=== PATIENT | female | born 1985 | race Two or more races ===

== ENCOUNTER 2021-03-25 14:58 | Emergency (ER) | payer MEDICAID, SELFPAY ==
--- NOTE | ~2021-03-25 | XR_ITS ---
EXAMINATION: XR CHEST CLINICAL INFORMATION: Chest tightness COMPARISON: None TECHNIQUE: 2 views of the chest were obtained. FINDINGS: No significant abnormality is noted involving the heart, lungs, mediastinum, bony thorax or soft tissues. XR/XR chest 2V IMPRESSION: Unremarkable examination.
[2021-03-25 15:12] VITALS: BP 126/75; PULSE 92; RESP 18; TEMP 36.7; O2SAT 98; BMI 41.5
--- NOTE | 2021-03-25 16:16 | ED_ITS ---
HPI - URI/Sore Throat General Chief Complaint: Upper Respiratory Symptoms Stated Complaint: headache,cough,sinus infection Time Seen by Provider: 03/25/21 15:48 Source: patient Mode of arrival: ambulatory Limitations: no limitations History of Present Illness HPI Narrative: 35-year-old female here with complaints of headache, dry cough, nasal congestion and chest tightness for 3 days. Ran out of her home albuterol. No shortness of breath, leg swelling, vomiting, diarrhea or abdominal pain. No fevers or chills. Received her COVID vaccine in December Related Data Previous Rx's Medication Instructions Recorded albuterol sulfate 2 inh INHALATION Q4H PRN #1 ea 03/25/21 benzonatate [Tessalon Perles] 100 mg PO TID PRN #10 cap 03/25/21 Allergies Allergy/AdvReac Type Severity Reaction Status Date / Time No Known Allergies Allergy Unknown UNKNOWN Unverified 05/17/20 15:51 Review of Systems Review of Systems: Yes all other systems are reviewed and are negative Constitutional: Constitutional: Reports no additional constitutional complaints, Denies body ache(s), Denies chills, Denies fever(s), Reports headache(s) and Denies weakness Eyes: Eyes: Reports no additional eye complaints and Denies change in vision ENT: Reports system reviewed and no additional complaints, except as documented, Denies dizziness, Reports headache(s), Reports nasal congestion, Denies nasal discharge and Denies neck pain Cardiovascular: Cardiovascular: Reports no additional cardiovascular complaints, Reports chest pain (Tightness), Denies leg edema and Denies dyspnea Respiratory: Respiratory: Reports no additional respiratory complaints, Reports cough and Denies dyspnea Gastrointestinal: Gastrointestinal: Reports no additional gastrointestinal complaints, Denies abdominal pain, Denies diarrhea, Denies nausea and Denies vomiting Genitourinary: Genitourinary: Reports no additional female genitourinary complaints and Denies urinary incontinence Musculoskeletal: Musculoskeletal: Reports no additional musculoskeletal complaints, Denies back pain, Denies arthralgias, Denies joint swelling, Denies neck pain, Denies numbness and Denies tingling Integumentary/Breasts: Skin/Breast: Reports system reviewed and no additional complaints, except as docu and Denies rash Neurologic: Denies Abnormal speech present, Denies dizziness, Reports headache(s), Denies numbness, Denies tingling and Denies weakness [facility] Past Medical History Attestation statement: The following information was validated with the patient. Source: old records reviewed and nursing notes reviewed Medical History Asthma delivery delivered Surgical History History of appendectomy Social History Social History Advance Directives: No Advance Directives Information Provided: Yes Patient : No Physical Exam Vital Signs: Vital Signs: Last Vital Signs Temp 98.0 F 03/25/21 15:12 Pulse 92 03/25/21 15:12 Resp 18 03/25/21 15:12 BP 126/75 03/25/21 15:12 Pulse Ox 98 03/25/21 15:12 Body Mass Index 41.5 Const: General: cooperative, healthy appearing, comfortable and no acute distress Orientation/consciousness: patient oriented x3 Limitations: no limitations HENMT: Head: Yes normal to inspection Ears: hearing grossly normal bilaterally General nose exam: Normal external nose present Face and sinus: Yes normal facial exam Mouth: Normal oral and palatal mucosa present Throat: Yes posterior oropharynx normal Eyes: General: appearance normal, both eyes and all related structures Pupils: Equal, round and reactive pupils present Neck: Neck: Yes normal visual inspection Chest: Chest palpation & inspection: normal inspection of the chest Resp: Effort & Inspection: normal respiratory effort Auscultation: clear to auscultation bilaterally Cardio: Rate: regular rate Rhythm: regular rhythm Peripheral pulses: Peripheral pulses 2+ throughout GI: Inspection: Yes normal to inspection Palpation (GI): Soft to palpation and nontender Auscultation: normal bowel sounds Back/Spine/Pelvis: Thoracic/Lumbar Spine: thoracic and lumbar spine normal to inspection Skin: General skin exam: no rashes or lesions noted Neuro: General: patient oriented x3, no focal motor deficits and normal sensation to monofilament Cranial nerves: Yes Equal, round and reactive pupils present Cognition (Neuro): normal cognition Speech: No Abnormal speech present Gait exam (Neuro): Normal gait present Motor exam (neuro): 5/5 motor strength present throughout Extrem: General: Yes normal to inspection Course Course Course Narrative: 35-year-old female here with upper respiratory symptoms for several days. Ran out of home albuterol. Exam is benign. Vitals are stable. Will check COVID test and chest x-ray 1650-chest x-ray shows no acute finding. COVID screen negative. Likely viral. Reviewed worrisome signs symptoms of when to return to the emergency department. Comfortable discharge home. MDM - URI/Sore Throat Medical Records Attestation: I reviewed the patient's medical records. Lab Data Attestation: I reviewed the patient's lab results. Labs: Lab Results 03/25/21 Range/Units 16:17 COVID-19 (YANIV) Negative (Negative) COVID-19 Clin Com See Note Imaging Data Chest x-ray: Attestation: I personally reviewed and interpreted this imaging study as follows: Radiologist's impression: [address] [id number] ReportSigned Patient: Sukhjinder Sharma#: [id number]: 1985Acct:[id number]/Sex: 35 / FADM Date: 03/25/21Loc: HO.EDAttending Dr: Ordering Physician: JB WHITLEY NP Date of Service: 03/25/21 Procedure(s): XR chest 2V Accession Number(s): [id number] cc: JB WHITLEY NP~ EXAMINATION: XR CHEST CLINICAL INFORMATION: Chest tightness COMPARISON: None TECHNIQUE: 2 views of the chest were obtained. FINDINGS: No significant abnormality is noted involving the heart, lungs, mediastinum, bony thorax or soft tissues. XR/XR chest 2V IMPRESSION: Unremarkable examination. Discharge Plan Discharge Clinical Impression: Upper respiratory infection Patient Disposition: Home, Self-Care Instructions: Viral Syndrome (ED) Additional Instructions: Your COVID test is negative Your x-ray shows no acute finding Increase fluids, rest Take Motrin/Tylenol as needed for pain or fever Prescriptions: New albuterol sulfate 90 mcg/actuation aerosol powdr breath activated 2 inh inhalation Q4H PRN (Reason: shortness of breath or wheezing) Qty: 1 RF: 0 benzonatate [Tessalon Perles] 100 mg capsule 100 mg PO TID PRN (Reason: cough) Qty: 10 RF: 0 Referrals: [facility] [Primary Care Provider] - 2 days Stand Alone Forms: Work/School Release
[2021-03-25 16:44] LABS: COVID-19 Test Negative (Negative)
== END 2021-03-25 16:59 | disposition home or self-care (01) ==
PROVIDERS: Nurse Practitioner Family; Emergency Provider Emergency Medicine
DX: J06.9 Acute upper respiratory infection, unspecified (principal); Z20.822 Contact with and (suspected) exposure to COVID-19; R51.9 Headache, unspecified
CPT/HCPCS: 36415; 71046; 87635; 99283

== ENCOUNTER 2021-08-09 16:00 | Emergency (ER) | payer MEDICAID, SELFPAY ==
--- NOTE | ~2021-08-09 | XR_ITS ---
EXAMINATION: XR HAND, RIGHT CLINICAL INFORMATION: Injury to the thumb COMPARISON: None TECHNIQUE: PA, lateral, and oblique views of the right hand. FINDINGS: The bones and soft tissues are normal. No fracture. Alignment is anatomic. Joint spaces are maintained. No erosions or soft tissue calcifications. XR/XR hand RT min 3V IMPRESSION: Normal right hand.
[2021-08-09 17:26] VITALS: RESP 18; TEMP 36.7; O2SAT 100; BMI 37.8
[2021-08-09 17:29] VITALS: BP 150/83; PULSE 62; RESP 16
--- NOTE | 2021-08-09 19:15 | ED.EXTPRO ---
HPI - Extremity Problem General Chief complaint: Extremity Injury, Upper Stated complaint: Thumb injury Time Seen by Provider: 08/09/21 19:15 Source: patient Mode of arrival: ambulatory Limitations: no limitations History of Present Illness HPI Narrative: 36-year-old female no known medical history presents to the emergency department with pain to her right thumb. Patient tells me that earlier this morning she was closing a car door and she jammed her right thumb into the car door. She tells me she immediately started experiencing 10/10 pain at the site. She notices bruising underneath her fingernail. She tells me she is able to move her finger however it causes her extreme pain. Patient tells me she took Motrin prior to arrival and has been feeling better. She has no other complaints at this time. Denies chest pain, fevers chills, shortness of breath, nausea, vomiting, abdominal pain, headache, vision changes. MD Complaint: extremity pain Onset (ago): hour(s) (8) Pain Consistency: constant Location: right Severity scale (1-10): 10 Quality: constant Radiation: none Relieving factors: immobilization Exacerbating factors: range of motion Associated symptoms: denies other symptoms Related Data Previous Rx's Medication Instructions Recorded albuterol sulfate 90 mcg/actuation 2 inh INHALATION Q4H PRN #1 ea 03/25/21 breath activated powder inhaler benzonatate 100 mg capsule 100 mg PO TID PRN #10 cap 03/25/21 (Mary Ortiz) Allergies Allergy/AdvReac Type Severity Reaction Status Date / Time No Known Allergies Allergy Unknown UNKNOWN Unverified 05/17/20 15:51 Review of Systems Review of Systems: Constitutional : No Fever, No Chills, Cardiovascular : No Chest Pain, No SOB Respiratory : No Dyspnea Gastrointestinal : No abdominal pain Musculoskeletal : + Joint Swelling, + Joint pain Skin : No rash, No skin laceration, + bruising Neuro : No Weakness, No Numbness Psych : No SI/HI Yes all other systems are reviewed and are negative PMFSH Past Medical History Attestation statement: The following information was validated with the patient. Source: old records reviewed and nursing notes reviewed Medical History Asthma delivery delivered Surgical History History of appendectomy Social History Social History Advance Directives: No Advance Directives Information Provided: Yes Patient : No Physical Exam Vital Signs: Vital Signs: Last Vital Signs Temp 98.1 F 08/09/21 17:26 Pulse 62 08/09/21 17:29 Resp 16 08/09/21 17:29 BP 150/83 H 08/09/21 17:29 Pulse Ox 100 08/09/21 17:26 BMI result Body Mass Index 37.8 Vital signs stable, patient noted to be slightly hypertensive. Blood pressure likely elevated secondary to pain. Appearance: Alert.? Oriented X3.? No acute distress.? Head: Normocephalic, atraumatic, no step-offs or deformities Eyes: Pupils equal, round and reactive to light.? ENT: Pharynx normal.? Neck: Normal inspection.? Neck supple.? CVS: Normal heart rate and rhythm.? Pulses normal.? Respiratory: No respiratory distress.? Breath sounds normal.? Abdomen: Soft and nontender.? Skin: Skin warm and dry.? Normal skin color.? Normal skin turgor.? Extremities: No lower extremity edema. 5/5 strength to bilateral upper and lower extremities + pain with flexion and extension of right 1st digit, sub fungal hematoma noted. No swelling or ecchymosis. Finger has full range of motion, good distal pulses. No evident ligament or tendon involvement. Back: No midline tenderness, no C-spine tenderness, full range of motion, no CVA tenderness bilaterally Neuro: Oriented X 3.? No motor deficit.? No sensory deficit. Course Reevaluation(s) Reevaluation #1: X-ray is negative for fractures. Patient will be placed in a finger splint, and will be given Tylenol for pain. Patient has been advised to return to the emergency department with new or worsening symptoms. She should follow-up with her PCP, and Ortho if her finger does not improve in 1-2 weeks. Patient is safe for discharge home. Time: 19:23 MDM - Extremity (Nontraumatic) MDM Narrative Medical decision making narrative: 1923 36-year-old female known medical history presents to the emergency department with complaints of right 1st digit pain status post jamming it into a door earlier this morning. Patient reports being able to move the finger however it causes her pain. She also noted bruising underneath the fingernail. Sensory and motor intact. Patient offers no other complaints at this time. On physical examination patient is noted to have pain with flexion and extension of the right 1st digit. There is ecchymosis noted underneath the fingernail. Patient has full range of motion to the digit however painful. No evident ligament tendon involvement. Good distal pulses bilaterally. Plan at this time is to obtain an x-ray. Medical Records Attestation: I reviewed the patient's medical records. Lab Data Attestation: I reviewed the patient's lab results. Imaging Data Right hand x-ray: Attestation: I personally reviewed and interpreted this imaging study as follows: Radiologist's impression: FINDINGS: The bones and soft tissues are normal. No fracture. Alignment is anatomic. Joint spaces are maintained. No erosions or soft tissue calcifications.? XR/XR hand RT min 3V IMPRESSION: Normal right hand. Critical Care Time Critical Care Time Critical Care Time: No Discharge Plan Discharge Clinical Impression: Jammed finger (interphalangeal joint), Finger pain, Finger sprain Patient Disposition: Home, Self-Care Instructions: Finger Sprain (ED) Additional Instructions: Take your medications as prescribed. Take ibuprofen every 6 hours, and Tylenol every 4 hours as needed for pain. Follow-up with Orthopedics of you do not feel better in a week or 2. Your x-ray did not show any fractures. Follow-up with your primary care provider this week. Return to the emergency department with new or worsening symptoms. In case of emergency call 911 Prescriptions: No Action albuterol sulfate 90 mcg/actuation aerosol powdr breath activated 2 inh inhalation Q4H PRN (Reason: shortness of breath or wheezing) Qty: 1 RF: 0 benzonatate [Tessalon Perles] 100 mg capsule 100 mg PO TID PRN (Reason: cough) Qty: 10 RF: 0 Referrals: Physician,Unknown J [Primary Care Provider] - 2 days Rosio Dong MD [Physician] - 1 week
[2021-08-09] MEDS: Acetaminophen 325 MG TABLET 650 MG PO (19:46)
== END 2021-08-09 20:08 | disposition home or self-care (01) ==
PROVIDERS: Emergency Provider Internal Medicine
DX: S63.601A Unspecified sprain of right thumb, initial encounter (principal); M79.644 Pain in right finger(s); Y29.XXXA Contact with blunt object, undetermined intent, initial encounter; Y93.9 Activity, unspecified; Y92.9 Unspecified place or not applicable; Y99.9 Unspecified external cause status; Z79.899 Other long term (current) drug therapy
CPT/HCPCS: 29130; 73130; 99283; 99284

== ENCOUNTER 2022-02-09 21:22 | Emergency (ER) | payer MEDICAID, SELFPAY ==
--- NOTE | 2022-02-09 | ECG_ITS ---
Test Reason : DIZZINESS Blood Pressure : / mmHG Vent. Rate : 069 BPM Atrial Rate : 069 BPM P-R Int : 146 ms QRS Dur : 082 ms QT Int : 398 ms P-R-T Axes : 014 050 043 degrees QTc Int : 426 ms Normal sinus rhythm Normal ECG No previous ECGs available Referred By: Generic ED Physician Electronically Signed By:Yair Mendoza
[2022-02-09 21:30] VITALS: BP 125/76; PULSE 79; RESP 20; TEMP 36.4; O2SAT 97; BMI 31.1
[2022-02-09 21:50] LABS: MANUAL DIFF FLAG NO
[2022-02-09 21:51] LABS: Basophils Absolute Auto 0.1 X10*3/uL (0.0-0.2); Basophils Percent Auto 0.7 % (0-2); Eosinophils Absolute Auto 0.6 X10*3/uL (0.0-0.4); Eosinophils Percent Auto 4.7 % (0-4); Hematocrit 35.9 % (37.0-47.0); Hemoglobin 11.7 g/dl (12.0-16.0); Imm Gran Abs Auto 0.04 X10*3/uL (0.00-0.03); Imm Gran Pct Auto 0.3 % (0.0-0.4); Lymphocytes Absolute Auto 3.1 X10*3/uL (1.2-4.9); Lymphocytes Percent Auto 26.1 % (20-40); Mean Corpuscular HGB Conc 32.6 g/dl (31.0-35.0); Mean Corpuscular Hemoglobin 23.4 pg (27.0-33.0); Mean Corpuscular Volume 71.8 fL (80.0-98.0); Mean Platelet Volume 10.4 fL (9.4-12.3); Monocytes Absolute Auto 0.6 X10*3/uL (0.1-1.2); Monocytes Percent Auto 5.3 % (2-11); Neutrophils Absolute Auto 7.6 x10*3/uL (2.0-8.3); Neutrophils Percent Auto 62.9 % (45-73); Platelet Count 325 X10*3/uL (160-400); Red Cell Distribution Width 14.7 % (11.0-16.0)
[2022-02-09 22:05] LABS: Anion Gap 12 (12-20); Blood Urea Nitrogen 10 mg/dL (9-16); Calcium 9.3 mg/dL (8.4-10.2); Carbon Dioxide 24 mmol/L (22-29); Chloride 106 mmol/L (96-108); Estimated Glomerular Filt Rate > 60; Glucose Random 101 mg/dL (60-115); Potassium 3.9 mmol/L (3.3-5.1); Sodium 138 mmol/L (135-145)
[2022-02-09 22:11] LABS: Troponin-I High Sensitivity < 3.5 ng/L (<3.5-17.0)
--- NOTE | 2022-02-09 22:36 | ED.GENADULT ---
HPI - General Adult General Chief complaint: Dizziness Stated complaint: episode of dizziness,sweating,nausea Time Seen by Provider: 02/09/22 22:36 Source: patient Limitations: no limitations History of Present Illness HPI narrative: This is a 28-year-old female who was at work today, when she had an episode where she felt momentarily dizzy. She did have associated nausea but no pain. She did feel sweaty. She was working in air conditioning. She denies any pain such as headache, chest pain, abdominal pain. She has not had any shortness of breath. She denies diarrhea. She does not believe she is , states her period is due about now. She denies any pain or swelling in her legs. She has a history of asthma and anemia. Related Data Previous Rx's Medication Instructions Recorded albuterol sulfate 90 mcg/actuation 2 inh inhalation Q4H PRN shortness 03/25/21 breath activated powder inhaler of breath or wheezing #1 ea benzonatate 100 mg capsule 100 mg PO TID PRN cough #10 caps 03/25/21 (Mary Ortiz) Allergies Allergy/AdvReac Type Severity Reaction Status Date / Time No Known Allergies Allergy Unknown UNKNOWN Unverified 02/09/22 21:32 Review of Systems Review of Systems: Yes all other systems are reviewed and are negative Constitutional: Constitutional: Reports as per HPI and Denies fever(s) Comments: Sweats, transient Eyes: Eyes: Reports as per HPI and Reports no additional eye complaints ENT: Reports system reviewed and no additional complaints, except as documented, Reports as per HPI, Reports dizziness, Denies nasal congestion, Denies nasal discharge and Denies sore throat Cardiovascular: Cardiovascular: Reports as per HPI, Denies chest pain and Denies dyspnea Respiratory: Respiratory: Reports as per HPI, Denies cough and Denies dyspnea Gastrointestinal: Gastrointestinal: Reports as per HPI, Denies abdominal pain, Denies diarrhea, Reports nausea and Denies vomiting Genitourinary: Genitourinary: Reports as per HPI, Denies hematuria, Denies urinary frequency and Denies dysuria Musculoskeletal: Musculoskeletal: Reports no additional musculoskeletal complaints and Denies numbness Integumentary/Breasts: Skin/Breast: Reports as per HPI and Denies rash Neurologic: Reports as per HPI, Reports dizziness, Denies focal weakness and Denies numbness Psychiatric: Psychiatric: Reports no additional psychiatric complaints and Reports as per HPI Endocrine: Endocrine: Reports no additional endocrine complaints and Reports as per HPI Hematologic/Lymphatic: Hematologic/Lymphatic: Reports no additional hematologic/lymphatic complaints, Reports as per HPI and Reports other (No peripheral edema) [facility] Past Medical History Medical History Asthma delivery delivered Surgical History History of appendectomy Social History Social History Advance Directives: No Advance Directives Information Provided: No Physical Exam ED Vital Signs: Vital Signs - 24 hr 02/09/22 21:30 02/09/22 22:47 Temperature 97.6 F 97.9 F Pulse Rate 79 82 Respiratory Rate 20 18 Blood Pressure 125/76 121/69 Pulse Oximetry 97 100 Oxygen Delivery Method Room Air Room Air BMI result Body Mass Index 31.1 Medical Decision Making MDM Narrative Medical decision making narrative: Patient with a brief episode of dizziness, nausea, sweats today. No associated pain. No shortness of breath. EKG is normal. Labs show borderline anemia, patient has history of anemia. Patient is not . Patient likely had vasovagal near-syncope. No clinical suspicion for pulmonary embolism. Lab Data Lab results reviewed: Yes I reviewed the patient's lab results. Result diagrams: 02/09/22 21:39 02/09/22 21:39 Labs: Lab Results 02/09/22 02/09/22 02/09/22 Range/Units 21:39 21:39 21:39 WBC 12.0 H (4.8-10.8) X10*3/uL RBC 5.00 (4.20-5.50) X10*6/uL Hgb 11.7 L (12.0-16.0) g/dl Hct 35.9 L (37.0-47.0) % MCV 71.8 L (80.0-98.0) fL MCH 23.4 L (27.0-33.0) pg MCHC 32.6 (31.0-35.0) g/dl RDW 14.7 (11.0-16.0) % Plt Count 325 (160-400) X10*3/uL MPV 10.4 (9.4-12.3) fL Immature Gran % (Auto) 0.3 (0.0-0.4) % Neut % (Auto) 62.9 (45-73) % Lymph % (Auto) 26.1 (20-40) % [place] % (Auto) 5.3 (2-11) % Eos % (Auto) 4.7 H (0-4) % Baso % (Auto) 0.7 (0-2) % Lymph # (Auto) 3.1 (1.2-4.9) X10*3/uL [place] # (Auto) 0.6 (0.1-1.2) X10*3/uL Eos # (Auto) 0.6 H (0.0-0.4) X10*3/uL Baso # (Auto) 0.1 (0.0-0.2) X10*3/uL Abs Immat Gran (auto) 0.04 H (0.00-0.03) X10*3/uL Absolute Neuts (auto) 7.6 (2.0-8.3) x10*3/uL Absolute Nucleated RBC 0.000 (0.0-0.012) X10*3/uL Nucleated RBC % (auto) 0.0 (0.0-0.2) /100WBC Sodium 138 (135-145) mmol/L Potassium 3.9 (3.3-5.1) mmol/L Chloride 106 (96-108) mmol/L Carbon Dioxide 24 (22-29) mmol/L Anion Gap 12 (12-20) BUN 10 (9-16) mg/dL Creatinine 0.72 (0.5-1.4) mg/dL Estim Creat Clear Calc 98.0 Estimated GFR > 60 Random Glucose 101 (60-115) mg/dL Calcium 9.3 (8.4-10.2) mg/dL Troponin I High Sens < 3.5 (<3.5-17.0) ng/L Urine Test (NEGATIVE) 02/09/22 Range/Units 22:44 WBC (4.8-10.8) X10*3/uL RBC (4.20-5.50) X10*6/uL Hgb (12.0-16.0) g/dl Hct (37.0-47.0) % MCV (80.0-98.0) fL MCH (27.0-33.0) pg MCHC (31.0-35.0) g/dl RDW (11.0-16.0) % Plt Count (160-400) X10*3/uL MPV (9.4-12.3) fL Immature Gran % (Auto) (0.0-0.4) % Neut % (Auto) (45-73) % Lymph % (Auto) (20-40) % [place] % (Auto) (2-11) % Eos % (Auto) (0-4) % Baso % (Auto) (0-2) % Lymph # (Auto) (1.2-4.9) X10*3/uL [place] # (Auto) (0.1-1.2) X10*3/uL Eos # (Auto) (0.0-0.4) X10*3/uL Baso # (Auto) (0.0-0.2) X10*3/uL Abs Immat Gran (auto) (0.00-0.03) X10*3/uL Absolute Neuts (auto) (2.0-8.3) x10*3/uL Absolute Nucleated RBC (0.0-0.012) X10*3/uL Nucleated RBC % (auto) (0.0-0.2) /100WBC Sodium (135-145) mmol/L Potassium (3.3-5.1) mmol/L Chloride (96-108) mmol/L Carbon Dioxide (22-29) mmol/L Anion Gap (12-20) BUN (9-16) mg/dL Creatinine (0.5-1.4) mg/dL Estim Creat Clear Calc Estimated GFR Random Glucose (60-115) mg/dL Calcium (8.4-10.2) mg/dL Troponin I High Sens (<3.5-17.0) ng/L Urine Test NEGATIVE (NEGATIVE) ECG Data Attestation: I personally reviewed and interpreted this ECG as follows: Interpretation: Sinus rhythm with a rate of 69. No ST elevation depression. Normal QRS axis. No ectopy. Discharge Plan Discharge Clinical Impression: Vasovagal episode Patient Disposition: Home, Self-Care Instructions: Near Syncope (ED) Additional Instructions: Follow-up with primary care physician as needed. Plenty of fluids. Likely had an episode where your vagus nerve got over stimulated, causing dizziness and sweats and transient low blood pressure. Your labs and EKG infected she tested not show any concerning findings. Prescriptions: No Action albuterol sulfate 90 mcg/actuation aerosol powdr breath activated 2 inh inhalation Q4H PRN (Reason: shortness of breath or wheezing) Qty: 1 0RF benzonatate [Tessalon Perles] 100 mg capsule 100 mg PO TID PRN (Reason: cough) Qty: 10 0RF Interventions: ED Discharge Assessment Last Done: 02/09/22 23:22 Discharge Date/Time: 02/09/22 23:31
[2022-02-09 22:47] VITALS: BP 121/69; PULSE 82; RESP 18; TEMP 36.6; O2SAT 100
[2022-02-09 22:58] LABS: UPreg QC Valid YES; Urine Pregnancy NEGATIVE (NEGATIVE)
== END 2022-02-09 23:31 | disposition home or self-care (01) ==
PROVIDERS: Emergency Provider Emergency Medicine
DX: R55 Syncope and collapse (principal); D64.9 Anemia, unspecified; J45.909 Unspecified asthma, uncomplicated
CPT/HCPCS: 36415; 80048; 81025; 84484; 85025; 93005; 99283; 99284

== ENCOUNTER 2022-06-11 19:26 | Emergency (ER) | payer MEDICAID, SELFPAY ==
--- NOTE | 2022-06-11 | ECG_ITS ---
Test Reason : CHEST PAIN Blood Pressure : / mmHG Vent. Rate : 067 BPM Atrial Rate : 067 BPM P-R Int : 140 ms QRS Dur : 082 ms QT Int : 396 ms P-R-T Axes : 011 040 034 degrees QTc Int : 418 ms Normal sinus rhythm Normal ECG When compared with ECG of 09-FEB-2022 21:36, T wave amplitude has decreased in Anterior leads Referred By: Generic ED Physician Electronically Signed By:SALLIE HOUGH MD
--- NOTE | ~2022-06-11 | XR_ITS ---
EXAMINATION: XR CHEST CLINICAL INFORMATION: Chest pain COMPARISON: 03/25/2021 TECHNIQUE: Frontal view of the chest was obtained. FINDINGS: The lungs are clear with no focal consolidation. No evidence of pneumothorax, pulmonary edema, or pleural effusions. The cardiomediastinal silhouette is unremarkable. No acute osseous findings. XR/XR chest 1V IMPRESSION: No acute cardiopulmonary findings.
[2022-06-11 20:26] VITALS: BP 141/69; PULSE 75; RESP 16; TEMP 36.6; O2SAT 98; BMI 38.1
[2022-06-11 20:59] LABS: Hematocrit 39.2 % (37.0-47.0); Hemoglobin 12.5 g/dl (12.0-16.0); Mean Corpuscular HGB Conc 31.9 g/dl (31.0-35.0); Mean Corpuscular Hemoglobin 23.3 pg (27.0-33.0); Mean Corpuscular Volume 73.1 fL (80.0-98.0); Mean Platelet Volume 10.4 fL (9.4-12.3); Platelet Count 353 X10*3/uL (160-400); Red Blood Count 5.36 X10*6/uL (4.20-5.50); Red Cell Distribution Width 15.6 % (11.0-16.0); White Blood Count 10.8 X10*3/uL (4.8-10.8)
[2022-06-11 21:14] LABS: Alanine Aminotransferase 24 U/L (0-31); Albumin Level 4.4 g/dL (3.5-5.0); Alkaline Phosphatase 64 U/L (39-117); Anion Gap 16 (12-20); Aspartate Amino Transferase 24 U/L (5-31); Bilirubin Total 1.2 mg/dL (0.0-1.0); Blood Urea Nitrogen 8 mg/dL (9-16); Calcium 9.4 mg/dL (8.4-10.2); Carbon Dioxide 22 mmol/L (22-29); Chloride 105 mmol/L (96-108); Creatinine Clr Calc Pharmacy 99.5; Estimated Glomerular Filt Rate > 60; Glucose Random 88 mg/dL (60-115); Potassium 3.9 mmol/L (3.3-5.1); Sodium 139 mmol/L (135-145); Total Protein 7.3 g/dL (6.5-8.0)
[2022-06-11 21:20] LABS: Troponin-I High Sensitivity < 3.5 ng/L (<3.5-17.0)
--- NOTE | 2022-06-12 00:16 | ED_ITS ---
HPI - Chest Pain General Chief Complaint: Chest Pain Stated Complaint: chest pain 3x days Time Seen by Provider: 06/11/22 23:54 Source: patient Mode of arrival: ambulatory Limitations: no limitations History of Present Illness HPI narrative: Patient comes to the emergency room complaining of right-sided chest pain for 2 days. Patient denies any injuries. Patient states it is worse when she bends down or if she puts pressure over her right chest. Patient denies any URI or UTI symptoms, no fever chills, no shortness of , no radiation of the pain Related Data Previous Rx's Medication Instructions Recorded albuterol sulfate 90 mcg/actuation 2 inh inhalation Q4H PRN shortness 03/25/21 breath activated powder inhaler of breath or wheezing #1 ea benzonatate 100 mg capsule 100 mg PO TID PRN cough #10 caps 03/25/21 (Mary Ortiz) Allergies Allergy/AdvReac Type Severity Reaction Status Date / Time No Known Allergies Allergy Unknown UNKNOWN Unverified 02/09/22 21:32 Review of Systems Review of Systems: Constitutional : No Weight loss, No Fever, No Chills, No Night Sweats, No Fatigue, No Malaise ENT/Mouth : No Hearing loss, No Ear Pain, No Nasal Congestion, No Sinus Pain, No Hoarseness, No sore throat, No Rhinorrhea, No Swallowing Difficulty Eyes: No Eye Pain, No Swelling, No Redness, No Foreign Body, No Discharge, No Vision Changes Cardiovascular : Complaining of right-sided Chest Pain, No SOB, No Dyspnea on Exertion, No Orthopnea, No Edema, No Palpitations Respiratory : No Cough, No Sputum, No Wheezing, No Smoke Exposure, No Dyspnea Gastrointestinal : No Nausea, No Vomiting, No Diarrhea, No Constipation, No abdominal Pain, No Hematochezia, No Melena Genitourinary : no irregular bleeding, No Dysuria, No Urinary Frequency, No Hematuria, No Urinary Incontinence, No Urgency, No Flank Pain, No Urinary Flow Changes, No Hesitancy Musculoskeletal : No joint pain, No Myalgias, No Joint Swelling Skin : No Skin Lesions, No rash Neuro : No Weakness, No Numbness, No Paresthesias, No Loss of Consciousness, No Dizziness, No Headache Psych : No Anxiety/Panic, No Depression, No SI/HI/AH/VH, No Social Issues, Heme/Lymph: No Bruising, No Bleeding,No Lymphadenopathy Endocrine : No Polyuria, No Polydipsia, No Temperature Intolerance REPLACED BY [facility] Past Medical History Medical History Asthma delivery delivered Surgical History History of appendectomy Social History Social History Advance Directives: No Physical Exam Vital Signs: Vital Signs: Last Vital Signs Temp 98 F 06/11/22 20:26 Pulse 75 06/11/22 20:26 Resp 16 06/11/22 20:26 BP 141/69 H 06/11/22 20:26 Pulse Ox 98 06/11/22 20:26 O2 Del Method 06/11/22 20:26 BMI result Body Mass Index 38.1 Const: Other: Appearance: Alert. Oriented X3. No acute distress. Eyes: Pupils equal, round and reactive to light. ENT: Pharynx normal. Neck: Normal inspection. Neck supple. No lymph nodes noted. No crepitus CVS: Normal heart rate and rhythm. Pulses normal. Normal S1 and S2, repro ducible chest pain to palpation in the right side of the chest Respiratory: No respiratory distress. Breath sounds normal. No Wheezing. No rales Abdomen: Soft and nontender. No rigidity. No distention. Skin: Skin warm and dry. Normal skin color. Normal skin turgor. Extremities: No lower extremity edema. No Lacerations. No Rash Neuro: Oriented X 3. No motor deficit. No sensory deficit. Moving all extremities. No slurred speech. CN 2 through 12 grossly intact Psych: calm, cooperative, normal affect Course Course Course Narrative: I discussed the physical exam with the patient, pain is likely musculoskeletal. Troponin, EKG negative, chest x-ray negative, reviewed by me, radiology report pending. EKG: Normal sinus rhythm, heart rate 67, no ST segment depression or elevation, no T-wave inversion, QTC 418 Patient was offered a dose of IM Toradol. Patient states she does not have that much pain, would prefer p.o. medication. MDM - Chest Pain Lab Data Result diagrams: 06/11/22 20:51 06/11/22 20:51 Labs: Lab Results 06/11/22 06/11/22 06/11/22 Range/Units 20:51 20:51 20:51 WBC 10.8 (4.8-10.8) X10*3/uL RBC 5.36 (4.20-5.50) X10*6/uL Hgb 12.5 (12.0-16.0) g/dl Hct 39.2 (37.0-47.0) % MCV 73.1 L (80.0-98.0) fL MCH 23.3 L (27.0-33.0) pg MCHC 31.9 (31.0-35.0) g/dl RDW 15.6 (11.0-16.0) % Plt Count 353 (160-400) X10*3/uL MPV 10.4 (9.4-12.3) fL Absolute Nucleated RBC 0.000 (0.0-0.012) X10*3/uL Nucleated RBC % (auto) 0.0 (0.0-0.2) /100WBC Sodium 139 (135-145) mmol/L Potassium 3.9 (3.3-5.1) mmol/L Chloride 105 (96-108) mmol/L Carbon Dioxide 22 (22-29) mmol/L Anion Gap 16 (12-20) BUN 8 L (9-16) mg/dL Creatinine 0.79 (0.5-1.4) mg/dL Estim Creat Clear Calc 99.5 Estimated GFR > 60 Random Glucose 88 (60-115) mg/dL Calcium 9.4 (8.4-10.2) mg/dL Total Bilirubin 1.2 H (0.0-1.0) mg/dL AST 24 (5-31) U/L ALT 24 (0-31) U/L Alkaline Phosphatase 64 (39-117) U/L Troponin I High Sens < 3.5 (<3.5-17.0) ng/L Total Protein 7.3 (6.5-8.0) g/dL Albumin 4.4 (3.5-5.0) g/dL Imaging Data Chest x-ray: Radiologist's impression: FINDINGS: The lungs are clear with no focal consolidation. No evidence of pneumothorax, pulmonary edema, or pleural effusions. The cardiomediastinal silhouette is unremarkable. No acute osseous findings. XR/XR chest 1V IMPRESSION: No acute cardiopulmonary findings Discharge Plan Discharge Clinical Impression: Anterior chest wall pain Patient Disposition: Home, Self-Care Instructions: Chest Pain (ED), Chest Wall Pain (ED) Additional Instructions: Please follow-up with your primary care physician tomorrow. If you have any worsening or new symptoms, please return to the emergency room or call 911 Prescriptions: No Action albuterol sulfate 90 mcg/actuation aerosol powdr breath activated 2 inh inhalation Q4H PRN (Reason: shortness of breath or wheezing) Qty: 1 0RF benzonatate [Tessalon Perles] 100 mg capsule 100 mg PO TID PRN (Reason: cough) Qty: 10 0RF
== END 2022-06-12 01:56 | disposition home or self-care (01) ==
PROVIDERS: Emergency Provider Emergency Medicine
DX: R07.89 Other chest pain (principal); Z79.899 Other long term (current) drug therapy
CPT/HCPCS: 36415; 71045; 80053; 84484; 85027; 93005; 99283

== ENCOUNTER 2023-03-23 09:18 | Emergency (ER) | payer MEDICAID, SELFPAY ==
--- NOTE | ~2023-03-23 | CT_ITS ---
EXAMINATION: CT ABDOMEN AND PELVIS WITH CONTRAST CLINICAL INFORMATION: Left lower quadrant pain COMPARISON: None available. TECHNIQUE: Multidetector volumetric images were obtained from the superior aspect of the liver through the pubic symphysis following administration 85 mL of Omnipaque 350 intravenous contrast. Sagittal and coronal reformatted images were obtained on the technologist's workstation. Oral contrast: No This CT examination was performed using dose optimization techniques as appropriate, variously including the following: *Automated exposure control *Adjustment of mA and/or kV according to patient size (this includes techniques or standardized protocols for targeted exams where dose is matched to indication/reason for exam; i.e. extremities or head) *Use of iterative reconstruction technique DLP: 552 mGy-cm FINDINGS: LUNG BASES: The visualized lung bases are unremarkable. LIVER, GALLBLADDER, AND BILIARY TREE: The liver is normal in size, shape, and attenuation. No focal hepatic lesion or biliary ductal dilatation is present. The gallbladder is unremarkable with no evidence of radiopaque gallstones, gallbladder wall thickening, or obvious pericholecystic inflammatory changes. PANCREAS: Unremarkable. SPLEEN: Unremarkable. ADRENAL GLANDS: Unremarkable. KIDNEYS AND URETERS: The kidneys are normal in size, shape, and attenuation. No hydronephrosis, hydroureter, or calculi seen. No perinephric stranding. BLADDER: Unremarkable. GASTROINTESTINAL TRACT: The small and large bowel are unremarkable. The appendix is is not definitively visualized. No secondary signs of appendicitis. ABDOMINAL WALL: No significant hernia is appreciated. LYMPH NODES: Normal. VASCULAR: Unremarkable. PELVIC VISCERA: Anteverted uterus. Bilateral adnexal/ovarian hypodensities foci measuring up to 2.0 cm, better evaluated on contemporaneous pelvic ultrasound. OSSEOUS STRUCTURES: Unremarkable. CT/CT abdomen pelvis w IV con IMPRESSION: 1. No acute process of the abdomen or pelvis identified. 2. Bilateral adnexal/ovarian hypodensities foci measuring up to 2.0 cm, better evaluated on contemporaneous pelvic ultrasound.
--- NOTE | ~2023-03-23 | US_ITS ---
EXAMINATION: US PELVIS COMPLETE US PELVIS ENDOVAGINAL CLINICAL INFORMATION: Vaginal bleeding COMPARISON: None. TECHNIQUE: Transabdominal and transvaginal images of the pelvis were obtained. FINDINGS: UTERUS: Anteverted. Normal size and contour, measuring 8.7 x 4.7 x 6.6 cm (cervix to fundus x AP x transverse). Anterior myometrium demonstrates increased vascularity. Hyperechoic focus in the left uterine fundus measuring up to 5 mm, nonspecific. Endometrium measures 0.7 cm in width. Nabothian cysts are noted. RIGHT OVARY: Normal size and echogenicity measuring 3.9 x 2.2 x 1.6 cm, volume 7.2 mL. Vascular flow noted in the right ovary. Right paraovarian/exophytic cyst measuring 1.2 x 1.3 x 1.1 cm, simple appearing. LEFT OVARY: Normal size and echogenicity measuring 2.6 x 2.4 x 2.1 cm, volume 6.7 mL. Vascular flow noted in the left ovary. FREE FLUID: No pelvic free fluid. US/US pelvic and transvaginal IMPRESSION: 1. Bilateral ovarian vascular flow identified. 2. Anterior myometrium demonstrates increased vascularity. 3. Hyperechoic focus in the left uterine fundus measuring up to 5 mm, nonspecific. 4. Nabothian cysts are noted. 5. Right paraovarian/exophytic cyst measuring up to 1.3 cm, simple appearing.
--- NOTE | ~2023-03-23 | US_ITS ---
EXAMINATION: US PELVIS COMPLETE US PELVIS ENDOVAGINAL CLINICAL INFORMATION: Vaginal bleeding COMPARISON: None. TECHNIQUE: Transabdominal and transvaginal images of the pelvis were obtained. FINDINGS: UTERUS: Anteverted. Normal size and contour, measuring 8.7 x 4.7 x 6.6 cm (cervix to fundus x AP x transverse). Anterior myometrium demonstrates increased vascularity. Hyperechoic focus in the left uterine fundus measuring up to 5 mm, nonspecific. Endometrium measures 0.7 cm in width. Nabothian cysts are noted. RIGHT OVARY: Normal size and echogenicity measuring 3.9 x 2.2 x 1.6 cm, volume 7.2 mL. Vascular flow noted in the right ovary. Right paraovarian/exophytic cyst measuring 1.2 x 1.3 x 1.1 cm, simple appearing. LEFT OVARY: Normal size and echogenicity measuring 2.6 x 2.4 x 2.1 cm, volume 6.7 mL. Vascular flow noted in the left ovary. FREE FLUID: No pelvic free fluid. US/US pelvic ovarian doppler IMPRESSION: 1. Bilateral ovarian vascular flow identified. 2. Anterior myometrium demonstrates increased vascularity. 3. Hyperechoic focus in the left uterine fundus measuring up to 5 mm, nonspecific. 4. Nabothian cysts are noted. 5. Right paraovarian/exophytic cyst measuring up to 1.3 cm, simple appearing.
[2023-03-23 09:25] VITALS: BP 124/64; PULSE 75; RESP 12; TEMP 36.5; O2SAT 99; BMI 35.5
[2023-03-23 09:46] VITALS: BP 141/76; PULSE 85; RESP 16; TEMP 36.7; O2SAT 100
--- NOTE | 2023-03-23 09:52 | PC.NURSE ---
pt a&ox3, vss, pt coming in due to 8 left lower abdominal pain, denies pain radiating towards flank area or anywhere else, tenderness noted upon palpation pt states that pain started with onset of menses, pt states she has been expelling blood clots since thursday - pt has picture on phone, denies n/v/d or any other symptoms, bloody urine noted in urine sample.
--- NOTE | 2023-03-23 09:55 | PC.NURSE ---
tech sending urine sample to lab.
[2023-03-23 10:06] LABS: MANUAL DIFF FLAG NO
[2023-03-23 10:11] LABS: Appearance Urine Cloudy; Color Urine RED; Glucose Urine UA Negative (Negative); Nitrite Urine Negative (Negative); Specific Gravity - Urine 1.025 (1.005-1.025); UMIC TRIGGER UACC YES; Urine Blood Large (3+) (Negative); Urine Ketones Negative (Negative); Urine Protein 100 (2+) mg/dL (Neg-Trace)
[2023-03-23 10:12] LABS: Basophils Absolute Auto 0.1 X10*3/uL (0.0-0.2); Basophils Percent Auto 0.8 % (0-2); Eosinophils Absolute Auto 0.2 X10*3/uL (0.0-0.4); Eosinophils Percent Auto 2.8 % (0-4); Hematocrit 38.4 % (37.0-47.0); Hemoglobin 12.5 g/dl (12.0-16.0); Imm Gran Abs Auto 0.03 X10*3/uL (0.00-0.03); Imm Gran Pct Auto 0.4 % (0.0-0.4); Lymphocytes Absolute Auto 1.6 X10*3/uL (1.2-4.9); Lymphocytes Percent Auto 20.1 % (20-40); Mean Corpuscular HGB Conc 32.6 g/dl (31.0-35.0); Mean Corpuscular Hemoglobin 23.6 pg (27.0-33.0); Mean Corpuscular Volume 72.6 fL (80.0-98.0); Mean Platelet Volume 10.1 fL (9.4-12.3); Monocytes Absolute Auto 0.4 X10*3/uL (0.1-1.2); Monocytes Percent Auto 5.2 % (2-11); Neutrophils Absolute Auto 5.6 x10*3/uL (2.0-8.3); Neutrophils Percent Auto 70.7 % (45-73); Platelet Count 340 X10*3/uL (160-400); Red Blood Count 5.29 X10*6/uL (4.20-5.50); Red Cell Distribution Width 14.8 % (11.0-16.0); White Blood Count 7.9 X10*3/uL (4.8-10.8)
--- NOTE | 2023-03-23 10:12 | ED_ITS ---
HPI - General Adult General Chief complaint: Abdominal Pain Stated complaint: L side abd pain Time Seen by Provider: 03/23/23 09:39 Source: patient Mode of arrival: ambulatory Limitations: no limitations History of Present Illness HPI narrative: patient is a 37-year-old female with a past medical history of and appendectomy presenting to the emergency department with a complaint of left- sided abdominal pain X 3 days. Patient reports that she got her period on Thursday and since then she has been having a much heavier period than usual and much more pain than usual ( per patient going through about 1 tampon regular an hour). Patient reports that there are large dark red clots which are not nor mal for her typical period. Patient reports that the pain is a stabbing sensation all along the left side of her abdomen accompanied by intermittent cramping, pain has been gradually worsening. Patient reports her last period was normal. Patient denies using any forms of control and reports being sexually active with 1 male partner but does not believe she could be . Patient has 2 children and no history of miscarriage. Patient denies fever, chills, nausea, vomiting, constipation, diarrhea, chest pain, shortness of breath, numbness, tingling, headache, vision changes. Patient not on thinners. Hasnt been regularly followed by obgyn in over 3 years Related Data Previous Rx's Medication Instructions Recorded albuterol sulfate 90 mcg/actuation 2 inh inhalation Q4H PRN shortness 03/25/21 breath activated powder inhaler of breath or wheezing #1 ea benzonatate 100 mg capsule 100 mg PO TID PRN cough #10 caps 03/25/21 (Mary Ortiz) ketorolac 10 mg tablet 10 mg PO TID PRN pain 5 days #15 03/23/23 tabs nitrofurantoin 100 mg PO BID 5 days #10 caps 03/23/23 monohydrate/macrocrystals 100 mg capsule (Macrobid) Allergies Allergy/AdvReac Type Severity Reaction Status Date / Time No Known Allergies Allergy Unknown UNKNOWN Unverified 02/09/22 21:32 Review of Systems Review of Systems: Constitutional : No Weight loss, No Fever, No Chills, No Fatigue, No Malaise ENT/Mouth : No sore throat, No Rhinorrhea Eyes: No Eye Pain, No Swelling, No Redness Cardiovascular : No Chest Pain, No SOB, No Dyspnea on Exertion, No Orthopnea, No Edema, No Palpitations Respiratory : No Cough, No Sputum, No Wheezing Gastrointestinal : No Nausea, No Vomiting, No Diarrhea, No Constipation, + abdominal Pain, No Hematochezia, No Melena, + vaginal bleeding Genitourinary : No Dysuria, No Urinary Frequency, No Hematuria, Musculoskeletal : No joint pain, No Myalgias, No Joint Swelling Skin : No Skin Lesions, No rash Neuro : No Weakness, No Numbness, No Dizziness, No Headache Psych : No Anxiety/Panic, No Depression All other systems reviewed and are negative Yes all other systems are reviewed and are negative [facility] Past Medical History Attestation statement: The following information was validated with the patient. Source: old records reviewed and nursing notes reviewed Medical History Asthma delivery delivered Surgical History History of appendectomy Social History Social History Alcohol intake: current Alcohol intake frequency: holidays/special occasions only Smoked in Last 30 Days: No Use of substances other than those prescribed or required for medical reasons: No Advance Directives: No Advance Directives Information Provided: Yes Patient : No Physical Exam ED Vital Signs: Vital Signs - 24 hr 03/23/23 09:25 03/23/23 09:46 03/23/23 11:57 Temperature 97.7 F 98.0 F Pulse Rate 75 85 61 Respiratory Rate 12 16 18 Blood Pressure 124/64 141/76 H 114/69 Pulse Oximetry 99 100 99 Oxygen Delivery Method Room Air Room Air Room Air 03/23/23 13:03 Temperature 98.2 F Pulse Rate 68 Respiratory Rate 16 Blood Pressure 120/67 Pulse Oximetry 100 Oxygen Delivery Method Room Air BMI result Body Mass Index 35.5 vss Appearance: Alert.? Oriented X3.? No acute distress.? Head: Normocephalic, atraumatic, no step-offs or deformities Eyes: Pupils equal, round and reactive to light.? Neck: Normal inspection.? Neck supple.? CVS: Normal heart rate and rhythm.? Pulses normal.? Respiratory: No respiratory distress.? Breath sounds normal.? Abdomen: Soft. +tenderness to palpation on the left side, worse in the LLQ. Skin: Skin warm and dry.? Normal skin color.? Normal skin turgor.? Extremities: No lower extremity edema.? No calf ttp. 5/5 strength to bilateral upper and lower extremities Back: No midline tenderness, no C-spine tenderness, full range of motion, no CVA tenderness bilaterally Neuro: Oriented X 3.? No motor deficit.? No sensory deficit. CN 2-12 intact sensitive exam: accompanied by Blaire PRICE normal appearing external genitalia, normal vaginal canal, no lesions lumps, masses, lacerations or hematomas. Closed cervical os without discharge. There is a moderate amount of dark red blood with no clots. No pain with palpation bilaterally. No adnexal tenderness. No cervical motion tenderness. No palpable adenopathy Tolerated pelvic exam well. Course Reevaluation(s) Reevaluation #1: CBC appears to be around patient's baseline. chemistry unremarkable. Beta hCG negative unlikely ectopic or miscarriage. UA noted to have leukocyte esterases, blood likely secondary to menses and 1+ bacteria will treat for UTI due to patient's symptoms. Time: 10:59 Reevaluation #2: Repeat CBC with stable H& H. Patient feeling well after Toradol now only reporting minimal pain, tylenol ordered at this time. CT abd and pelvis w/ no acute process of the abd and pelvis. Bilateral adnexal/ ovarian hypodensitis foci measuring upto 2.0 cm US pending. Time: 14:14 Reevaluation #3: Patient's ultrasound of pelvic and transvaginal with bilateral very in vascular flow, no signs of torsion. Anterior myometrium demonstrating increased vascularity hypoechoic focus in the left uterine fundus measuring up to 5 mm nonspecific, nabothian cysts are noted, right periovarian/exophytic cyst measuring up to 1.3 cm in simple appearing. I do not suspect any of this is causing patient's pain. Likely menorrhagia with cramping from menses. Will have a follow-up with senior web engineer. Stable at time of discharge, vital signs stable, no tachycardia or hypotension. Patient will follow-up with OBGYN I did give her follow-up information. Patient is comfortable with being discharged home, I did educate her of bleeding increases or if she is bleeding through more than 2 pad per hour she should seek medical attention. Time: 14:28 Medications Administered Discontinued Medications Generic Name Dose Route Start Last Admin Trade Name Caesar PRN Reason Stop Dose Admin Iohexol 100 ml 03/23/23 12:37 03/23/23 12:38 Iohexol 350 Mg/Ml 100 Ml Infus..Btl IV 03/23/23 12:38 85 ml ONCE ONE Administration Ketorolac Tromethamine 30 mg 03/23/23 10:36 03/23/23 11:55 Ketorolac Tromethamine 30 Mg/Ml Vial IM 03/23/23 10:37 30 mg ONCE ONE Administration Medical Decision Making Medical Decision Making [facility] Narrative: 37-year-old female w/ presents with left-sided abdominal pain physical exam positive for left-sided tenderness to palpation with increased tenderness in the left lower quadrant. No CVA tenderness. Concerns for menorrhagia which is most likely versus ovarian cyst versus endometriosis. . Less likely miscarriage versus diverticulitis. Will rule out ovarian torsion, ectopic . Unlikely acute abdomen, renal stone, cholecystitis, appendicitis. Will rule out acute blood loss anemia and electrolyte abnormalities and UTI. Unlikely STDs or PID . Other differential malignancy. Plan: labs, urine, imaging Differential Diagnosis Differential Diagnoses: The differential diagnosis associated with the presentation includes Concerns for menorrhagia which is most likely versus ovarian cyst versus endometriosis. . Less likely miscarriage versus diverticulitis. Will rule out ovarian torsion, ectopic . Unlikely acute abdomen, renal stone, cholecystitis, appendicitis. Will rule out acute blood loss anemia and electrolyte abnormalities and UTI. Unlikely STDs or PID . Other differential malignancy. Admission/Observation Consideration of admission/observation: Escalation of care including admission/observation considered possible Lab Data [facility] Lab Attestation statement: I reviewed the patient's lab results. 03/23/23 10:02 03/23/23 10:02 Labs: Lab Results 03/23/23 03/23/23 03/23/23 Range/Units 09:56 09:56 09:59 WBC (4.8-10.8) X10*3/uL RBC (4.20-5.50) X10*6/uL Hgb (12.0-16.0) g/dl Hct (37.0-47.0) % MCV (80.0-98.0) fL MCH (27.0-33.0) pg MCHC (31.0-35.0) g/dl RDW (11.0-16.0) % Plt Count (160-400) X10*3/uL MPV (9.4-12.3) fL Immature Gran % (Auto) (0.0-0.4) % Neut % (Auto) (45-73) % Lymph % (Auto) (20-40) % [place] % (Auto) (2-11) % Eos % (Auto) (0-4) % Baso % (Auto) (0-2) % Lymph # (Auto) (1.2-4.9) X10*3/uL [place] # (Auto) (0.1-1.2) X10*3/uL Eos # (Auto) (0.0-0.4) X10*3/uL Baso # (Auto) (0.0-0.2) X10*3/uL Abs Immat Gran (auto) (0.00-0.03) X10*3/uL Absolute Neuts (auto) (2.0-8.3) x10*3/uL Absolute Nucleated RBC (0.0-0.012) X10*3/uL Nucleated RBC % (auto) (0.0-0.2) /100WBC Sodium (135-145) mmol/L Potassium (3.3-5.1) mmol/L Chloride (96-108) mmol/L Carbon Dioxide (22-29) mmol/L Anion Gap (12-20) BUN (9-16) mg/dL Creatinine (0.5-1.4) mg/dL Estim Creat Clear Calc Estimated GFR Random Glucose (60-115) mg/dL Calcium (8.4-10.2) mg/dL Magnesium (1.6-2.6) mg/dL Total Bilirubin (0.0-1.0) mg/dL AST (5-31) U/L ALT (0-31) U/L Alkaline Phosphatase (39-117) U/L Total Protein (6.5-8.0) g/dL Albumin (3.5-5.0) g/dL Lipase (8-78) U/L Beta HCG, Quant mIU/mL Urine Color RED Urine Appearance Cloudy Urine pH 6.0 (5.0-9.0) Ur Specific [place] 1.025 (1.005-1.025) Urine Protein 100 (2+) H (Neg-Trace) mg/dL Urine Glucose (UA) Negative (Negative) mg/dL Urine Ketones Negative (Negative) mg/dL Urine Blood Large (3+) H (Negative) Urine Nitrite Negative (Negative) Ur Leukocyte Esterase Negative (Negative) Urine RBC >20 H (0-2) /HPF Urine WBC >50 H (0-5) /HPF Ur Squamous Epith Cells 6-10 (0-2) /HPF Urine Bacteria 1+ (None Seen) Hyaline Casts 0-2 (0-2) /LPF Urine Opiates Screen Not Detected (Not Detect) Urine Fentanyl Screen Not Detected (Not Detect) Ur Barbiturates Screen Not Detected (Not Detect) Ur Phencyclidine Scrn Not Detected (Not Detect) Ur Amphetamines Screen Not Detected (Not Detect) U Benzodiazepines Scrn Not Detected (Not Detect) Urine Cocaine Screen Not Detected (Not Detect) U Marijuana (THC) Screen Not Detected (Not Detect) COVID-19 (YANIV) Negative (Negative) COVID-19 Clin Com See Note 03/23/23 03/23/23 03/23/23 Range/Units 10:02 10:02 10:02 WBC 7.9 (4.8-10.8) X10*3/uL RBC 5.29 (4.20-5.50) X10*6/uL Hgb 12.5 (12.0-16.0) g/dl Hct 38.4 (37.0-47.0) % MCV 72.6 L (80.0-98.0) fL MCH 23.6 L (27.0-33.0) pg MCHC 32.6 (31.0-35.0) g/dl RDW 14.8 (11.0-16.0) % Plt Count 340 (160-400) X10*3/uL MPV 10.1 (9.4-12.3) fL Immature Gran % (Auto) 0.4 (0.0-0.4) % Neut % (Auto) 70.7 (45-73) % Lymph % (Auto) 20.1 (20-40) % [place] % (Auto) 5.2 (2-11) % Eos % (Auto) 2.8 (0-4) % Baso % (Auto) 0.8 (0-2) % Lymph # (Auto) 1.6 (1.2-4.9) X10*3/uL [place] # (Auto) 0.4 (0.1-1.2) X10*3/uL Eos # (Auto) 0.2 (0.0-0.4) X10*3/uL Baso # (Auto) 0.1 (0.0-0.2) X10*3/uL Abs Immat Gran (auto) 0.03 (0.00-0.03) X10*3/uL Absolute Neuts (auto) 5.6 (2.0-8.3) x10*3/uL Absolute Nucleated RBC 0.000 (0.0-0.012) X10*3/uL Nucleated RBC % (auto) 0.0 (0.0-0.2) /100WBC Sodium 140 (135-145) mmol/L Potassium 4.1 (3.3-5.1) mmol/L Chloride 110 H (96-108) mmol/L Carbon Dioxide 23 (22-29) mmol/L Anion Gap 11 L (12-20) BUN 9 (9-16) mg/dL Creatinine 0.74 (0.5-1.4) mg/dL Estim Creat Clear Calc 101.2 Estimated GFR > 60 Random Glucose 89 (60-115) mg/dL Calcium 9.6 (8.4-10.2) mg/dL Magnesium 2.2 (1.6-2.6) mg/dL Total Bilirubin 0.8 (0.0-1.0) mg/dL AST 28 (5-31) U/L ALT 35 H (0-31) U/L Alkaline Phosphatase 73 (39-117) U/L Total Protein 7.2 (6.5-8.0) g/dL Albumin 4.1 (3.5-5.0) g/dL Lipase 19 (8-78) U/L Beta HCG, Quant < 2 mIU/mL Urine Color Urine Appearance Urine pH (5.0-9.0) Ur Specific [place] (1.005-1.025) Urine Protein (Neg-Trace) mg/dL Urine Glucose (UA) (Negative) mg/dL Urine Ketones (Negative) mg/dL Urine Blood (Negative) Urine Nitrite (Negative) Ur Leukocyte Esterase (Negative) Urine RBC (0-2) /HPF Urine WBC (0-5) /HPF Ur Squamous Epith Cells (0-2) /HPF Urine Bacteria (None Seen) Hyaline Casts (0-2) /LPF Urine Opiates Screen (Not Detect) Urine Fentanyl Screen (Not Detect) Ur Barbiturates Screen (Not Detect) Ur Phencyclidine Scrn (Not Detect) Ur Amphetamines Screen (Not Detect) U Benzodiazepines Scrn (Not Detect) Urine Cocaine Screen (Not Detect) U Marijuana (THC) Screen (Not Detect) COVID-19 (YANIV) (Negative) COVID-19 Clin Com 03/23/23 Range/Units 12:17 WBC 7.6 (4.8-10.8) X10*3/uL RBC 5.11 (4.20-5.50) X10*6/uL Hgb 12.1 (12.0-16.0) g/dl Hct 37.5 (37.0-47.0) % MCV 73.4 L (80.0-98.0) fL MCH 23.7 L (27.0-33.0) pg MCHC 32.3 (31.0-35.0) g/dl RDW 14.9 (11.0-16.0) % Plt Count 342 (160-400) X10*3/uL MPV 10.1 (9.4-12.3) fL Immature Gran % (Auto) 0.1 (0.0-0.4) % Neut % (Auto) 69.3 (45-73) % Lymph % (Auto) 22.4 (20-40) % [place] % (Auto) 4.1 (2-11) % Eos % (Auto) 3.3 (0-4) % Baso % (Auto) 0.8 (0-2) % Lymph # (Auto) 1.7 (1.2-4.9) X10*3/uL [place] # (Auto) 0.3 (0.1-1.2) X10*3/uL Eos # (Auto) 0.3 (0.0-0.4) X10*3/uL Baso # (Auto) 0.1 (0.0-0.2) X10*3/uL Abs Immat Gran (auto) 0.01 (0.00-0.03) X10*3/uL Absolute Neuts (auto) 5.2 (2.0-8.3) x10*3/uL Absolute Nucleated RBC 0.000 (0.0-0.012) X10*3/uL Nucleated RBC % (auto) 0.0 (0.0-0.2) /100WBC Sodium (135-145) mmol/L Potassium (3.3-5.1) mmol/L Chloride (96-108) mmol/L Carbon Dioxide (22-29) mmol/L Anion Gap (12-20) BUN (9-16) mg/dL Creatinine (0.5-1.4) mg/dL Estim Creat Clear Calc Estimated GFR Random Glucose (60-115) mg/dL Calcium (8.4-10.2) mg/dL Magnesium (1.6-2.6) mg/dL Total Bilirubin (0.0-1.0) mg/dL AST (5-31) U/L ALT (0-31) U/L Alkaline Phosphatase (39-117) U/L Total Protein (6.5-8.0) g/dL Albumin (3.5-5.0) g/dL Lipase (8-78) U/L Beta HCG, Quant mIU/mL Urine Color Urine Appearance Urine pH (5.0-9.0) Ur Specific [place] (1.005-1.025) Urine Protein (Neg-Trace) mg/dL Urine Glucose (UA) (Negative) mg/dL Urine Ketones (Negative) mg/dL Urine Blood (Negative) Urine Nitrite (Negative) Ur Leukocyte Esterase (Negative) Urine RBC (0-2) /HPF Urine WBC (0-5) /HPF Ur Squamous Epith Cells (0-2) /HPF Urine Bacteria (None Seen) Hyaline Casts (0-2) /LPF Urine Opiates Screen (Not Detect) Urine Fentanyl Screen (Not Detect) Ur Barbiturates Screen (Not Detect) Ur Phencyclidine Scrn (Not Detect) Ur Amphetamines Screen (Not Detect) U Benzodiazepines Scrn (Not Detect) Urine Cocaine Screen (Not Detect) U Marijuana (THC) Screen (Not Detect) COVID-19 (YANIV) (Negative) COVID-19 Clin Com Independent Interpretation I performed an independent interpretation of an: Ultrasound (US/US pelvic and tr ansvaginal IMPRESSION: 1. Bilateral ovarian vascular flow identified. 2. Anterior myometrium demonstrates increased vascularity. 3. Hyperechoic focus in the left uterine fundus measuring up to 5 mm, nonspecific. 4. Nabothian cysts are noted. 5. Right paraovarian/exophytic cys) and CT Scan (CT/CT abdomen pelvis w IV con IMPRESSION: 1. No acute process of the abdomen or pelvis identified. 2. Bilateral adnexal/ovarian hypodensities foci measuring up to 2.0 cm, better evaluated on contemporaneous pelvic ultrasound.) Radiology Impression Discussion of test interpretation with radiology: I have reviewed the radiologist's reading. Core Measures AMI core measures followed: Yes Measure exclusions: not indicated Critical Care Time Critical Care Time Critical Care Time: No Discharge Plan Discharge Clinical Impression: Abdominal pain, LLQ, Menorrhagia, Vaginal bleeding, UTI (urinary tract infection) Patient Disposition: Home, Self-Care Instructions: Urinary Tract Infection in Women (DC), Abdominal Pain (ED), Alyssa rrhagia (ED) Additional Instructions: Take your medications as prescribed. If you were prescribed antibiotics today, it is important that you take your medication to their entirety, do not skip any doses, do not finish them early. Follow-up with your primary care provider this week. Follow up with OBGYN Return to the emergency department with new or worsening symptoms. Such as feve rs, chills, chest pain, shortness of breath, nausea, vomiting, dizziness, headache, vision changes, lethargy Or if your bleeding through more than 2 pads/tampons an hour In case of emergency call 911 I advised to follow-up with OBGYN as soon as possible. Toradol has been sent to your pharmacy, you tolerated this well in the department. Please take this as prescribed do not take this with ibuprofen, or other NSAIDs, do not mix this with alcohol. Side effects of this medication including increased risk for bleeding and possible kidney injury. ?CT/CT abdomen pelvis w IV con IMPRESSION: 1.? No acute process of the abdomen or pelvis identified. 2.? Bilateral adnexal/ovarian hypodensities foci measuring up to 2.0 cm, better evaluated on contemporaneous pelvic ultrasound. US/US pelvic ovarian doppler IMPRESSION: 1.? Bilateral ovarian vascular flow identified. 2.? Anterior myometrium demonstrates increased vascularity. 3.? Hyperechoic focus in the left uterine fundus measuring up to 5 mm, nonspecific. 4.? Nabothian cysts are noted. 5.? Right paraovarian/exophytic cyst measuring up to 1.3 cm, simple appearing. ? Prescriptions: New nitrofurantoin monohyd/m-cryst [Macrobid] 100 mg capsule 100 mg PO BID 5 Days Qty: 10 0RF Rx Instructions: must administer with a meal/food ketorolac 10 mg tablet 10 mg PO TID PRN (Reason: pain) 5 Days Qty: 15 0RF No Action albuterol sulfate 90 mcg/actuation aerosol powdr breath activated 2 inh inhalation Q4H PRN (Reason: shortness of breath or wheezing) Qty: 1 0RF benzonatate [Tessalon Perles] 100 mg capsule 100 mg PO TID PRN (Reason: cough) Qty: 10 0RF Referrals: Physician,None [Primary Care Provider] - 2 days Rajeev Badillo MD [Physician] - 2 days Stand Alone Forms: Work/School Release
[2023-03-23 10:13] LABS: Leukocyte Esterase Urine Negative (Negative)
[2023-03-23 10:18] LABS: Bacteria Urine 1+ (None Seen); Hyaline Casts Urine 0-2 /LPF (0-2); UACC Culture Trigger YES; WBC Urine >50 /HPF (0-5)
[2023-03-23 10:20] LABS: Amphetamine Screen Urine Not Detected (Not Detect); Barbiturates, Urine Not Detected (Not Detect); Benzodiazepines Screen Urine Not Detected (Not Detect); Cannabinoid Screen Urine Not Detected (Not Detect); Cocaine Screen Urine Not Detected (Not Detect); Fentanyl, urine Not Detected (Not Detect); Opiate Screen Urine Not Detected (Not Detect); Phencyclidine Screen Urine Not Detected (Not Detect)
[2023-03-23 10:21] LABS: RBC Urine >20 /HPF (0-2)
[2023-03-23 10:29] LABS: Alanine Aminotransferase 35 U/L (0-31); Albumin Level 4.1 g/dL (3.5-5.0); Alkaline Phosphatase 73 U/L (39-117); Anion Gap 11 (12-20); Aspartate Amino Transferase 28 U/L (5-31); Bilirubin Total 0.8 mg/dL (0.0-1.0); Blood Urea Nitrogen 9 mg/dL (9-16); Calcium 9.6 mg/dL (8.4-10.2); Carbon Dioxide 23 mmol/L (22-29); Chloride 110 mmol/L (96-108); Creatinine Clr Calc Pharmacy 101.2; Estimated Glomerular Filt Rate > 60; Glucose Random 89 mg/dL (60-115); Lipase 19 U/L (8-78); Magnesium 2.2 mg/dL (1.6-2.6); Potassium 4.1 mmol/L (3.3-5.1); Sodium 140 mmol/L (135-145); Total Protein 7.2 g/dL (6.5-8.0)
[2023-03-23 10:35] LABS: HCG Quantitative < 2 mIU/mL
[2023-03-23 10:38] LABS: COVID-19 Test Negative (Negative); IDNOW Serial# 08D9AD1C
--- NOTE | 2023-03-23 11:22 | PC.NURSE ---
pt being transported to x-ray, will insert IV and medications per provider order when she comes back.
[2023-03-23] MEDS: Ketorolac Tromethamine 30 MG/ML VIAL IM (11:55)
[2023-03-23 11:57] VITALS: BP 114/69; PULSE 61; RESP 18; O2SAT 99
--- NOTE | 2023-03-23 12:18 | PC.NURSE ---
vss, 20gIV placed in the left AC without complications, medication administered per provider order, tech sending added labs to lab, pt waiting for CT scan, call curran placed within reach, will continue to monitor.
[2023-03-23 12:27] LABS: MANUAL DIFF FLAG NO
[2023-03-23 12:32] LABS: Basophils Absolute Auto 0.1 X10*3/uL (0.0-0.2); Basophils Percent Auto 0.8 % (0-2); Eosinophils Absolute Auto 0.3 X10*3/uL (0.0-0.4); Eosinophils Percent Auto 3.3 % (0-4); Hematocrit 37.5 % (37.0-47.0); Hemoglobin 12.1 g/dl (12.0-16.0); Imm Gran Abs Auto 0.01 X10*3/uL (0.00-0.03); Imm Gran Pct Auto 0.1 % (0.0-0.4); Lymphocytes Absolute Auto 1.7 X10*3/uL (1.2-4.9); Lymphocytes Percent Auto 22.4 % (20-40); Mean Corpuscular HGB Conc 32.3 g/dl (31.0-35.0); Mean Corpuscular Hemoglobin 23.7 pg (27.0-33.0); Mean Corpuscular Volume 73.4 fL (80.0-98.0); Mean Platelet Volume 10.1 fL (9.4-12.3); Monocytes Absolute Auto 0.3 X10*3/uL (0.1-1.2); Monocytes Percent Auto 4.1 % (2-11); Neutrophils Absolute Auto 5.2 x10*3/uL (2.0-8.3); Neutrophils Percent Auto 69.3 % (45-73); Platelet Count 342 X10*3/uL (160-400); Red Blood Count 5.11 X10*6/uL (4.20-5.50); Red Cell Distribution Width 14.9 % (11.0-16.0); White Blood Count 7.6 X10*3/uL (4.8-10.8)
[2023-03-23] MEDS: iohexoL 350 MG/ML 100 ML INFUS..BTL IV (12:38)
--- NOTE | 2023-03-23 12:42 | PC.NURSE ---
pt return from CT scan
[2023-03-23 13:03] VITALS: BP 120/67; PULSE 68; RESP 16; TEMP 36.8; O2SAT 100
--- NOTE | 2023-03-23 13:05 | PC.NURSE ---
pt a&ox3, vss, pt verbalizing pain level decreased to a 5/1 post medication administration, call curran placed within reach.
[2023-03-23] MEDS: Acetaminophen 325 MG TABLET 975 MG PO (14:42)
== END 2023-03-23 14:48 | disposition home or self-care (01) ==
PROVIDERS: Physician Assistant; Emergency Provider Emergency Medicine
DX: N39.0 Urinary tract infection, site not specified (principal); R10.32 Left lower quadrant pain; N92.0 Excessive and frequent menstruation with regular cycle; Z20.822 Contact with and (suspected) exposure to COVID-19; Z79.899 Other long term (current) drug therapy
CPT/HCPCS: 36415; 74177; 76830; 76856; 80053; 80307; 81001; 83690; 83735; 84702; 85025; 87086; 87635; 93975; 96372; 99284; J1885; Q9967

== ENCOUNTER 2023-11-10 14:54 | Emergency (ER) | payer MEDICAID, SELFPAY ==
--- NOTE | ~2023-11-10 | US_ITS ---
EXAMINATION: US PELVIS CLINICAL INFORMATION: Ovarian torsion/abscess. COMPARISON: Pelvic ultrasound dated 03/23/2023. TECHNIQUE: Ultrasound of the pelvis is performed using both transabdominal and transvaginal transducers along with Doppler. Transvaginal imaging is performed due to inadequate visualization transabdominally. FINDINGS: Uterus: The uterus is anteverted and measures 10.2 x 4.2 x 5.5 cm. It is somewhat heterogeneous in echotexture. There is a stable hyperechoic focus in the left uterine fundus measuring up to 3 mm of uncertain etiology. There are nabothian cysts. The double wall endometrial thickness is 4 mm. Adnexa: Both ovaries are visualized. There is normal color flow to the adnexa. There is no ovarian torsion. There is no pelvic ascites or fluid collection. Right ovary measures 2.2 x 1.6 x 1.8 cm. 3.3 mL. There is a right paraovarian cyst measuring 1.2 x 1.0 x 0.9 cm. Left ovary measures 2.1 x 1.8 x 1.8 cm. 3.6 mL US/US pelvic ovarian doppler IMPRESSION: Both ovaries are visualized and are normal in size. There is no evidence of ovarian torsion. There is no evidence of ovarian abscess.
--- NOTE | ~2023-11-10 | US_ITS ---
EXAMINATION: US PELVIS CLINICAL INFORMATION: Ovarian torsion/abscess. COMPARISON: Pelvic ultrasound dated 03/23/2023. TECHNIQUE: Ultrasound of the pelvis is performed using both transabdominal and transvaginal transducers along with Doppler. Transvaginal imaging is performed due to inadequate visualization transabdominally. FINDINGS: Uterus: The uterus is anteverted and measures 10.2 x 4.2 x 5.5 cm. It is somewhat heterogeneous in echotexture. There is a stable hyperechoic focus in the left uterine fundus measuring up to 3 mm of uncertain etiology. There are nabothian cysts. The double wall endometrial thickness is 4 mm. Adnexa: Both ovaries are visualized. There is normal color flow to the adnexa. There is no ovarian torsion. There is no pelvic ascites or fluid collection. Right ovary measures 2.2 x 1.6 x 1.8 cm. 3.3 mL. There is a right paraovarian cyst measuring 1.2 x 1.0 x 0.9 cm. Left ovary measures 2.1 x 1.8 x 1.8 cm. 3.6 mL US/US pelvic and transvaginal IMPRESSION: Both ovaries are visualized and are normal in size. There is no evidence of ovarian torsion. There is no evidence of ovarian abscess.
[2023-11-10 15:22] VITALS: BP 151/98; PULSE 85; RESP 16; TEMP 36.5; O2SAT 98; BMI 37.3
--- NOTE | 2023-11-10 15:29 | ED.GENADULT ---
HPI - General Adult General Chief complaint: Abdominal Pain Stated complaint: Pelvic pain Time Seen by Provider: 11/10/23 23:09 Source: patient Mode of arrival: ambulatory Limitations: no limitations History of Present Illness HPI narrative: 38 yo female with PMH of ovarian cyst just started her menses on Thursday she notes increased pain in LLQ since then that is sharp. She denies increased bleeding, fevers, vomiting. She has no OBGYN to see at this time. She has no diarrhea. She has taken motrin with little relief. She has no concerns for STI MD complaint: pelvic pain. Onset (ago): day(s) (2) Location: pelvis Radiation: non-radiation Severity: moderate Quality: stabbing Pain Consistency: constant Relieving factors: none Exacerbating factors: movement Associated symptoms: denies other symptoms Treatments prior to arrival: none Related Data Previous Rx's Medication Instructions Recorded albuterol sulfate 90 mcg/actuation 2 inh inhalation Q4H PRN shortness 03/25/21 breath activated powder inhaler of breath or wheezing #1 ea benzonatate 100 mg capsule 100 mg PO TID PRN cough #10 caps 03/25/21 (Tessalsindy Ortiz) ketorolac 10 mg tablet 10 mg PO TID PRN pain 5 days #15 03/23/23 tabs nitrofurantoin 100 mg PO BID 5 days #10 caps 03/23/23 monohydrate/macrocrystals 100 mg capsule (Macrobid) hydrocodone 5 mg-acetaminophen 325 1 tab PO Q6H PRN pain #10 tabs 11/10/23 mg tablet ibuprofen 600 mg tablet 600 mg PO Q6H PRN pain #30 tabs 11/10/23 Allergies Allergy/AdvReac Type Severity Reaction Status Date / Time No Known Allergies Allergy Unknown UNKNOWN Unverified 02/09/22 21:32 Review of Systems Review of Systems: Constitutional : No Weight loss, No Fever, No Chills ENT/Mouth : No sore throat, No Rhinorrhea Eyes: No Swelling, No Redness Cardiovascular : No Chest Pain, No SOB, NoEdema Respiratory : No Cough, No Sputum, No Wheezing Gastrointestinal : no Nausea, no Vomiting, no Diarrhea, positive abdominal Pain, No Hematochezia, No Melena Genitourinary : No Dysuria, No Urinary Frequency, No Hematuria, No Urgency Musculoskeletal : No joint pain, No Myalgias, No Joint Swelling Skin : No Skin Lesions, No rash Neuro : No Weakness, No Numbness, No Dizziness, No Headache All other systems reviewed and are negative. [facility] Past Medical History Attestation statement: The following information was validated with the patient. Source: old records reviewed Medical History delivery delivered Asthma Surgical History History of appendectomy Social History Social History Alcohol intake: current Alcohol intake frequency: holidays/special occasions only Advance Directives: No Advance Directives Information Provided: No Physical Exam ED Vital Signs: Vital Signs - 24 hr 11/10/23 15:22 11/10/23 23:32 Temperature 97.7 F Pulse Rate 85 72 Respiratory Rate 16 14 Blood Pressure 151/98 H 132/72 Pulse Oximetry 98 Oxygen Delivery Method Room Air BMI result Body Mass Index 37.3 Appearance: Alert. Oriented X3. No acute distress. Eyes: Pupils equal, round and reactive to light. ENT: Pharynx normal. Neck: Normal inspection. Neck supple. CVS: Normal heart rate and rhythm. Pulses normal. Respiratory: No respiratory distress. Breath sounds normal. Abdomen: Soft and mild LLQ pain no rebound Skin: Skin warm and dry. Normal skin color. Normal skin turgor. Extremities: No lower extremity edema. No calf ttp Neuro: Oriented X 3. No motor deficit. No sensory deficit. Course Course Course Narrative: RME: 38-year-old female presents to ED for pelvic pain and have on her menstruation currently. Patient has history of left ovarian cyst and states presently she is bleeding more than usual. Patient has not made with follow-up with her OBGYN due to lack of insurance. Patient does not believe she is . Labs UA ordered Medications Administered Discontinued Medications Generic Name Dose Route Start Last Admin Trade Name Freq PRN Reason Stop Dose Admin Hydrocodone Bitart/Acetaminophen 1 tab 11/10/23 23:21 11/10/23 23:34 Hydrocodone Bit/Acetam 5/325 Tablet PO 11/10/23 23:22 1 tab ONCE ONE Administration Medical Decision Making Medical Decision Making MDM Narrative: 38 yo female with prior ovarian cyst on her menses now with painful left lower quadrant no associated n/v/d or fever no urinary symptoms no STI concerns no change in bleeding at this time will need labs, UA, US and PO pain medications. She has been waiting a long time and declines CT scan in the ED will return for worsening symptoms. Could also be renal colic or diverticulitis. Differential Diagnosis Differential Diagnoses: The differential diagnosis associated with the presentation includes UTI, ovarian cyst, dysmenorrhea, endometriosis, renal colic, diverticulitis Admission/Observation Consideration of admission/observation: Escalation of care including admission/observation considered not toxic, no peritoneal symptoms no signs of torsion can be sent home with precautions Lab Data MDM Lab Attestation statement: I reviewed the patient's lab results. 11/10/23 17:22 11/10/23 17:22 Labs: Lab Results 11/10/23 Range/Units 17:22 WBC 9.1 (4.8-10.8) X10*3/uL RBC 5.38 (4.20-5.50) X10*6/uL Hgb 12.4 (12.0-16.0) g/dl Hct 38.5 (37.0-47.0) % MCV 71.6 L (80.0-98.0) fL MCH 23.0 L (27.0-33.0) pg MCHC 32.2 (31.0-35.0) g/dl RDW 15.5 (11.0-16.0) % Plt Count 344 (160-400) X10*3/uL MPV 10.1 (9.4-12.3) fL Immature Gran % (Auto) 0.3 (0.0-0.4) % Neut % (Auto) 65.1 (45-73) % Lymph % (Auto) 24.7 (20-40) % [place] % (Auto) 4.6 (2-11) % Eos % (Auto) 4.4 H (0-4) % Baso % (Auto) 0.9 (0-2) % Lymph # (Auto) 2.2 (1.2-4.9) X10*3/uL [place] # (Auto) 0.4 (0.1-1.2) X10*3/uL Eos # (Auto) 0.4 (0.0-0.4) X10*3/uL Baso # (Auto) 0.1 (0.0-0.2) X10*3/uL Abs Immat Gran (auto) 0.03 (0.00-0.03) X10*3/uL Absolute Neuts (auto) 5.9 (2.0-8.3) x10*3/uL Absolute Nucleated RBC 0.000 (0.0-0.012) X10*3/uL Nucleated RBC % (auto) 0.0 (0.0-0.2) /100WBC PT 10.7 L (11.1-13.3) SEC INR 0.9 (0.9-1.1) APTT 28.8 (26.0-36.8) SEC Sodium 140 (135-145) mmol/L Potassium 3.8 (3.3-5.1) mmol/L Chloride 110 H (96-108) mmol/L Carbon Dioxide 25 (22-29) mmol/L Anion Gap 9 L (12-20) BUN 7 L (9-16) mg/dL Creatinine 0.75 (0.5-1.4) mg/dL Estim Creat Clear Calc 101.5 Estimated GFR > 60 Random Glucose 111 (60-115) mg/dL Calcium 9.6 (8.4-10.2) mg/dL Beta HCG, Quant < 2 mIU/mL Urine Color Yellow Urine Appearance Clear Urine pH 6.0 (5.0-9.0) Ur Specific [place] <= 1.005 (1.005-1.025) Urine Protein Negative (Neg-Trace) mg/dL Urine Glucose (UA) Negative (Negative) mg/dL Urine Ketones Negative (Negative) mg/dL Urine Blood Large (3+) H (Negative) Urine Nitrite Negative (Negative) Ur Leukocyte Esterase Negative (Negative) Urine RBC 0-2 (0-2) /HPF Urine WBC 0-5 (0-5) /HPF Ur Squamous Epith Cells 0-2 (0-2) /HPF Urine Bacteria None Seen (None Seen) Hyaline Casts 0-2 (0-2) /LPF Urine Test NEGATIVE (NEGATIVE) Independent Interpretation I performed an independent interpretation of an: Ultrasound (no torsion) Radiology Impression Discussion of test interpretation with radiology: I have reviewed the radiologist's reading. External Record Review External record reviewed: Inpatient record Prescription Management I considered prescription management with: Pain Medication and Other Discharge Plan Discharge Clinical Impression: Pelvic pain Patient Disposition: Home, Self-Care Instructions: Pelvic Pain (ED) Additional Instructions: return for fevers, worsening pain, bloody stools, vomiting, or any other concerns. you will need a CT scan if that worsens. follow up with your OBGYN Adnexa: Both ovaries are visualized. There is normal color flow to the adnexa. There is no ovarian torsion. There is no pelvic ascites or fluid collection. Right ovary measures 2.2 x 1.6 x 1.8 cm. 3.3 mL. There is a right paraovarian cyst measuring 1.2 x 1.0 x 0.9 cm. Left ovary measures 2.1 x 1.8 x 1.8 cm. 3.6 mL US/US pelvic and transvaginal IMPRESSION: Both ovaries are visualized and are normal in size. There is no evidence of ovarian torsion. There is no evidence of ovarian abscess. Prescriptions: New hydrocodone-acetaminophen 5-325 mg tablet 1 tab PO Q6H PRN (Reason: pain) Qty: 10 0RF Rx Instructions: partial fill okay; Partial Fill upon patient request. ibuprofen 600 mg tablet 600 mg PO Q6H PRN (Reason: pain) Qty: 30 0RF No Action albuterol sulfate 90 mcg/actuation aerosol powdr breath activated 2 inh inhalation Q4H PRN (Reason: shortness of breath or wheezing) Qty: 1 0RF benzonatate [Tessalon Perles] 100 mg capsule 100 mg PO TID PRN (Reason: cough) Qty: 10 0RF nitrofurantoin monohyd/m-cryst [Macrobid] 100 mg capsule 100 mg PO BID 5 Days Qty: 10 0RF Rx Instructions: must administer with a meal/food ketorolac 10 mg tablet 10 mg PO TID PRN (Reason: pain) 5 Days Qty: 15 0RF Stand Alone Forms: Work/School Release Interventions: ED Discharge Assessment Last Done: 11/10/23 23:36 Discharge Date/Time: 11/10/23 23:36
[2023-11-10 17:29] LABS: MANUAL DIFF FLAG NO
[2023-11-10 17:31] LABS: Appearance Urine Clear; Color Urine Yellow; Glucose Urine UA Negative (Negative); Leukocyte Esterase Urine Negative (Negative); Nitrite Urine Negative (Negative); Specific Gravity - Urine <= 1.005 (1.005-1.025); UMIC TRIGGER UACC YES; Urine Blood Large (3+) (Negative); Urine Ketones Negative (Negative); Urine Protein Negative (Neg-Trace)
[2023-11-10 17:40] LABS: Basophils Absolute Auto 0.1 X10*3/uL (0.0-0.2); Basophils Percent Auto 0.9 % (0-2); Eosinophils Absolute Auto 0.4 X10*3/uL (0.0-0.4); Eosinophils Percent Auto 4.4 % (0-4); Hematocrit 38.5 % (37.0-47.0); Hemoglobin 12.4 g/dl (12.0-16.0); Imm Gran Abs Auto 0.03 X10*3/uL (0.00-0.03); Imm Gran Pct Auto 0.3 % (0.0-0.4); Lymphocytes Absolute Auto 2.2 X10*3/uL (1.2-4.9); Lymphocytes Percent Auto 24.7 % (20-40); Mean Corpuscular HGB Conc 32.2 g/dl (31.0-35.0); Mean Corpuscular Volume 71.6 fL (80.0-98.0); Mean Platelet Volume 10.1 fL (9.4-12.3); Monocytes Absolute Auto 0.4 X10*3/uL (0.1-1.2); Monocytes Percent Auto 4.6 % (2-11); Neutrophils Absolute Auto 5.9 x10*3/uL (2.0-8.3); Neutrophils Percent Auto 65.1 % (45-73); Platelet Count 344 X10*3/uL (160-400); Red Blood Count 5.38 X10*6/uL (4.20-5.50); Red Cell Distribution Width 15.5 % (11.0-16.0); White Blood Count 9.1 X10*3/uL (4.8-10.8)
[2023-11-10 17:41] LABS: Bacteria Urine None Seen (None Seen); Hyaline Casts Urine 0-2 /LPF (0-2); RBC Urine 0-2 /HPF (0-2); Squamous Epithelial Cell Urine 0-2 /HPF (0-2); WBC Urine 0-5 /HPF (0-5)
[2023-11-10 17:42] LABS: INTERNATIONAL NORM RATIO 0.9 (0.9-1.1); Prothrombin Time 10.7 SEC (11.1-13.3)
[2023-11-10 17:43] LABS: Anion Gap 9 (12-20); Blood Urea Nitrogen 7 mg/dL (9-16); Calcium 9.6 mg/dL (8.4-10.2); Carbon Dioxide 25 mmol/L (22-29); Chloride 110 mmol/L (96-108); Creatinine Clr Calc Pharmacy 101.5; Estimated Glomerular Filt Rate > 60; Glucose Random 111 mg/dL (60-115); Potassium 3.8 mmol/L (3.3-5.1); Sodium 140 mmol/L (135-145)
[2023-11-10 17:45] LABS: Partial Thromboplastin Time 28.8 SEC (26.0-36.8)
[2023-11-10 17:51] LABS: HCG Quantitative < 2 mIU/mL
[2023-11-10 18:01] LABS: UPreg QC Valid YES; Urine Pregnancy NEGATIVE (NEGATIVE)
[2023-11-10 23:32] VITALS: BP 132/72; PULSE 72; RESP 14
[2023-11-10] MEDS: HYDROcodone Bit/Acetam 5/325 TABLET 1 TAB PO (23:34)
== END 2023-11-10 23:36 | disposition home or self-care (01) ==
PROVIDERS: Physician Assistant; Emergency Provider Emergency Medicine
DX: R10.2 Pelvic and perineal pain (principal); N83.511 Torsion of right ovary and ovarian pedicle; R10.32 Left lower quadrant pain; Z79.899 Other long term (current) drug therapy
CPT/HCPCS: 36415; 76830; 76856; 80048; 81001; 81025; 84702; 85025; 85610; 85730; 93975; 99284

== ENCOUNTER 2024-11-03 21:18 | Emergency (ER) | payer MEDICAID, SELFPAY ==
--- NOTE | ~2024-11-03 | US_ITS ---
CLINICAL HISTORY: Early , right lower quadrant abdominal pa US OB 1st trimester transabdominal Comparison: none Findings: Imaged uterus is retroverted and measures 12 cm long axis. Single intrauterine . CRL: 1.04 cm. EGA: 7 weeks and 1 day +/-1 week JOEY: 06/22/2025 Borders of the gestational sac are partly obscured. Imaged heart rate is 140 beats per minute. Imaged yolk sac is unremarkable. No significant free fluid in the imaged pelvis. Vascular flow preserved to both imaged ovaries. Right ovary measures 2.2 x 2.1 x 1.9 cm. Left ovary measures 3.4 x 2.4 x 2.3 cm. IMPRESSION: 1. Single intrauterine with estimated gestational age 7 weeks and 1 day +/-1 week. 2. Imaged heart rate is 140 beats per minute. 3. No ultrasound findings of ovarian torsion. This document has been electronically signed by: Juan Patterson MD on 11/04/2024 02:08:07
[2024-11-03 21:21] VITALS: BP 169/67; PULSE 74; RESP 18; TEMP 36.8; O2SAT 100; BMI 41.4
[2024-11-03 21:41] LABS: MANUAL DIFF FLAG NO
[2024-11-03 21:43] LABS: Basophils Absolute Auto 0.1 X10*3/uL (0.0-0.2); Basophils Percent Auto 0.6 % (0-2); Eosinophils Absolute Auto 0.2 X10*3/uL (0.0-0.4); Eosinophils Percent Auto 1.9 % (0-4); Hemoglobin 11.1 g/dl (12.0-16.0); Imm Gran Abs Auto 0.05 X10*3/uL (0.00-0.03); Imm Gran Pct Auto 0.4 % (0.0-0.4); Lymphocytes Absolute Auto 2.5 X10*3/uL (1.2-4.9); Lymphocytes Percent Auto 19.7 % (20-40); Mean Corpuscular HGB Conc 33.6 g/dl (31.0-35.0); Mean Corpuscular Volume 71.3 fL (80.0-98.0); Mean Platelet Volume 10.1 fL (9.4-12.3); Monocytes Absolute Auto 0.6 X10*3/uL (0.1-1.2); Monocytes Percent Auto 4.9 % (2-11); Neutrophils Absolute Auto 9.1 x10*3/uL (2.0-8.3); Neutrophils Percent Auto 72.5 % (45-73); Platelet Count 336 X10*3/uL (160-400); Red Blood Count 4.63 X10*6/uL (4.20-5.50); Red Cell Distribution Width 14.7 % (11.0-16.0); White Blood Count 12.6 X10*3/uL (4.8-10.8)
[2024-11-03 21:44] LABS: Appearance Urine Clear; Color Urine Yellow; Glucose Urine UA Negative (Negative); Leukocyte Esterase Urine Negative (Negative); Nitrite Urine Negative (Negative); PH 5.5 (5.0-9.0); Specific Gravity - Urine 1.025 (1.005-1.025); Urine Blood Negative (Negative); Urine Ketones Trace mg/dL (Negative); Urine Protein Negative (Neg-Trace)
[2024-11-03 21:58] LABS: Alanine Aminotransferase 38 U/L (0-31); Albumin Level 3.8 g/dL (3.5-5.0); Alkaline Phosphatase 80 U/L (39-117); Anion Gap 12 (12-20); Aspartate Amino Transferase 27 U/L (5-31); Bilirubin Direct 0.2 mg/dL (0.0-0.5); Bilirubin Total 0.6 mg/dL (0.0-1.0); Blood Urea Nitrogen 9 mg/dL (9-16); Calcium 8.9 mg/dL (8.4-10.2); Carbon Dioxide 22 mmol/L (22-29); Chloride 109 mmol/L (96-108); Creatinine Clr Calc Pharmacy 105.1; Estimated Glomerular Filt Rate > 60; Glucose Random 120 mg/dL (60-115); Lipase 21 U/L (8-78); Potassium 3.5 mmol/L (3.3-5.1); Sodium 139 mmol/L (135-145); Total Protein 7.1 g/dL (6.5-8.0)
--- NOTE | 2024-11-03 23:42 | ED_ITS ---
HPI - Abdominal Pain General Chief Complaint: Abdominal Pain Stated Complaint: lower right abd pain Time Seen by Provider: 11/03/24 23:37 Source: patient Mode of arrival: ambulatory Limitations: no limitations History of Present Illness ED Provider: Herlinda Henley NP HPI narrative: Patient is a 39-year-old female with LMP 09/13/2024 who presents to the emergency department for evaluation, endorsing that she had a positive home test last week, she is experiencing right lower quadrant abdominal pain with associated nausea but no vomiting. Denies vaginal bleeding, abnormal vaginal discharge. denies urinary symptoms. No associated diarrhea or constipation. Related Data Previous Rx's ?Medication ?Instructions ?Recorded albuterol sulfate 90 mcg/actuation 2 inh inhalation Q4H PRN shortness 03/25/21 breath activated powder inhaler of breath or wheezing #1 ea benzonatate 100 mg capsule 100 mg PO TID PRN cough #10 caps 03/25/21 (Mary Ortiz) ketorolac 10 mg tablet 10 mg PO TID PRN pain 5 days #15 03/23/23 tabs nitrofurantoin 100 mg PO BID 5 days #10 caps 03/23/23 monohydrate/macrocrystals 100 mg capsule (Macrobid) hydrocodone 5 mg-acetaminophen 325 1 tab PO Q6H PRN pain #10 tabs 11/10/23 mg tablet ibuprofen 600 mg tablet 600 mg PO Q6H PRN pain #30 tabs 11/10/23 vit no.95-ferrous 1 tab PO DAILY #30 tabs 11/04/24 fumarate 28 mg-folic acid 800 mcg tablet ( Formula) Allergies Allergy/AdvReac Type Severity Reaction Status Date / Time No Known Allergies Allergy Unknown UNKNOWN Unverified 11/03/24 21:28 Review of Systems Review of Systems Yes all other systems are reviewed and are negative [facility] Past Medical History Attestation statement: The following information was validated with the patient. Source: old records reviewed Medical History delivery delivered Asthma Surgical History History of appendectomy Social History Social History Alcohol intake: current Alcohol intake frequency: holidays/special occasions only Advance Directives: No Physical Exam ED Vital Signs: Vital Signs - 24 hr 11/03/24 21:21 11/04/24 00:21 Temperature 98.2 F 98.5 F Pulse Rate 74 77 Respiratory Rate 18 18 Blood Pressure 169/67 H 107/59 L Pulse Oximetry 100 98 Oxygen Delivery Method Room Air Room Air BMI result Body Mass Index 41.4 Appearance: Alert.?Oriented to person, place and time. No acute distress.?Normal affect.?? Neck: Normal inspection.? Neck supple.?? CVS: Heart sounds normal. Normal heart rate and rhythm.? Pulses normal.?? Respiratory: No respiratory distress.? Lung sounds clear to auscultation bilaterally?? Abdomen: Soft without notable TTP. No rebound tenderness at McBurney's point. Negative psoas sign. Negative Rovsing sign. Negative Swan sign. No CVAT. Normoactive bowel sounds. No pulsatile mass.?? Skin: Skin warm and dry.? Normal skin color.? Extremities: No lower extremity edema.? Neuro: Moves all extremities spontaneously. Sensation intact bilaterally. Ambulates with normal steady gait. Course Reevaluation(s) Reevaluation #1: patient signed out ot Osvaldo Baron MD, pending US, if normal IUP without complication anticipate discharge home Medical Decision Making Medical Decision Making MDM Narrative: Patient is a 39-year-old female past medical history of ovarian cysts presenting for evaluation of right lower quadrant abdominal pain and nausea in the setting of positive test as per HPI. On review of workup obtained prior to my assumption of care, CBC a mild leukocytosis of 12,600, mild microcytic anemia not meeting transfusion criteria with hemoglobin 11.1 and hematocrit 33. No electrolyte derangement. No FREDDIE. Overall unremarkable LFT. Beta hCG 62,428, corresponding with > 6 weeks, based on LMP, estimated due date 06/20/2025 with the proximate gestation of 7 weeks 2 days. Urinalysis is without evidence of infection. Will obtain ultrasound to affirm intrauterine and exclude ectopic. Beta hCG 62,428 Ultrasound shows a single intrauterine with estimated gestational age of 7 weeks and 1 day +/-1 week, heart rate in the 140s. No ultrasound findings of ovarian torsion. Differential Diagnosis Differential Diagnoses: The differential diagnosis associated with the presentation includes (See narrative above) Admission/Observation Consideration of admission/observation: Escalation of care including admission/observation considered (See narrative above ) Lab Data MDM Lab Attestation statement: I reviewed the patient's lab results. 11/03/24 21:35 11/03/24 21:35 Labs: Lab Results 11/03/24 11/03/24 Range/Units 21:35 21:51 WBC 12.6 H (4.8-10.8) X10*3/uL RBC 4.63 (4.20-5.50) X10*6/uL Hgb 11.1 L (12.0-16.0) g/dl Hct 33.0 L (37.0-47.0) % MCV 71.3 L (80.0-98.0) fL MCH 24.0 L (27.0-33.0) pg MCHC 33.6 (31.0-35.0) g/dl RDW 14.7 (11.0-16.0) % Plt Count 336 (160-400) X10*3/uL MPV 10.1 (9.4-12.3) fL Immature Gran % (Auto) 0.4 (0.0-0.4) % Neut % (Auto) 72.5 (45-73) % Lymph % (Auto) 19.7 L (20-40) % [place] % (Auto) 4.9 (2-11) % Eos % (Auto) 1.9 (0-4) % Baso % (Auto) 0.6 (0-2) % Lymph # (Auto) 2.5 (1.2-4.9) X10*3/uL [place] # (Auto) 0.6 (0.1-1.2) X10*3/uL Eos # (Auto) 0.2 (0.0-0.4) X10*3/uL Baso # (Auto) 0.1 (0.0-0.2) X10*3/uL Abs Immat Gran (auto) 0.05 H (0.00-0.03) X10*3/uL Absolute Neuts (auto) 9.1 H (2.0-8.3) x10*3/uL Absolute Nucleated RBC 0.000 (0.0-0.012) X10*3/uL Nucleated RBC % (auto) 0.0 (0.0-0.2) /100WBC Sodium 139 (135-145) mmol/L Potassium 3.5 (3.3-5.1) mmol/L Chloride 109 H (96-108) mmol/L Carbon Dioxide 22 (22-29) mmol/L Anion Gap 12 (12-20) BUN 9 (9-16) mg/dL Creatinine 0.76 (0.5-1.4) mg/dL Estim Creat Clear Calc 105.1 Estimated GFR > 60 Random Glucose 120 H (60-115) mg/dL Calcium 8.9 D (8.4-10.2) mg/dL Total Bilirubin 0.6 (0.0-1.0) mg/dL Direct Bilirubin 0.2 (0.0-0.5) mg/dL AST 27 (5-31) U/L ALT 38 H (0-31) U/L Alkaline Phosphatase 80 (39-117) U/L Total Protein 7.1 (6.5-8.0) g/dL Albumin 3.8 (3.5-5.0) g/dL Lipase 21 (8-78) U/L Beta HCG, Quant 63139 mIU/mL Urine Color Yellow Urine Appearance Clear Urine pH 5.5 (5.0-9.0) Ur Specific [place] 1.025 (1.005-1.025) Urine Protein Negative (Neg-Trace) mg/dL Urine Glucose (UA) Negative (Negative) mg/dL Urine Ketones Trace (Negative) mg/dL Urine Blood Negative (Negative) Urine Nitrite Negative (Negative) Ur Leukocyte Esterase Negative (Negative) Blood Type A Positive Independent Interpretation I performed an independent interpretation of an: Ultrasound (single IUP) Radiology Impression Discussion of test interpretation with radiology: I have reviewed the radiologist's reading. External Record Review External record reviewed: Outpatient record Discharge Plan Discharge Clinical Impression: Abdominal pain during Patient Disposition: Home, Self-Care Instructions: Abdominal Pain in (ED) Additional Instructions: Your ultrasound shows that you are approximately 7 weeks and 1 day =/- 1 week, baby has a good heart rate. Please follow-up with your primary care physician tomorrow. If you have any worsening or new symptoms, please return to the emergency room or call 911 Prescriptions: New PNV cmb#95-ferrous fumarate-FA [ Formula] 28 mg iron- 800 mcg tablet 1 tab PO DAILY Qty: 30 0RF No Action albuterol sulfate 90 mcg/actuation aerosol powdr breath activated 2 inh inhalation Q4H PRN (Reason: shortness of breath or wheezing) Qty: 1 0RF benzonatate [Tessalon Perles] 100 mg capsule 100 mg PO TID PRN (Reason: cough) Qty: 10 0RF nitrofurantoin monohyd/m-cryst [Macrobid] 100 mg capsule 100 mg PO BID 5 Days Qty: 10 0RF Rx Instructions: must administer with a meal/food ketorolac 10 mg tablet 10 mg PO TID PRN (Reason: pain) 5 Days Qty: 15 0RF hydrocodone-acetaminophen 5-325 mg tablet 1 tab PO Q6H PRN (Reason: pain) Qty: 10 0RF Rx Instructions: partial fill okay; Partial Fill upon patient request. ibuprofen 600 mg tablet 600 mg PO Q6H PRN (Reason: pain) Qty: 30 0RF Referrals: Rajeev Badillo MD [Physician] - 11/07/24 Print Language: Colombian
[2024-11-04 00:21] VITALS: BP 107/59; PULSE 77; RESP 18; TEMP 36.9; O2SAT 98
[2024-11-04 02:46] VITALS: BP 107/59; PULSE 77; RESP 18; TEMP 36.9; O2SAT 98
== END 2024-11-04 07:30 | disposition home or self-care (01) ==
PROVIDERS: Emergency Medicine; Emergency Provider Emergency Medicine
DX: O21.0 Mild hyperemesis gravidarum (principal); R10.31 Right lower quadrant pain; Z3A.01 Less than 8 weeks gestation of pregnancy; Z79.899 Other long term (current) drug therapy
CPT/HCPCS: 36415; 76801; 76817; 80053; 80076; 81003; 82248; 83690; 84702; 85025; 86900; 86901; 99283; 99284

== ENCOUNTER → 2024-11-04 | Outpatient (BNV) | payer MEDICAID, SELFPAY | PROVIDERS: Emergency Provider Emergency Medicine; Visit Provider Radiology Neuroradiology | DX: O26.891 Other specified pregnancy related conditions, first trimester (principal) | CPT/HCPCS: 76801 ==